=== PATIENT | female | born 1980 | race Caucasian/White ===

== ENCOUNTER 2023-08-27 08:01 | Outpatient (AMB) | payer OTHER, SELFPAY ==
--- NOTE | 2023-08-27 08:16 | A.OFFVIS_ITS ---
Intake Vital Signs 08/27/23 08:18 Height 5 ft 8 in BP 112/78 Blood Pressure Location Lt brachial Position Sitting Respiration 17 Pulse 74 Pulse Source Pulse Oximeter Pulse Oximetry (%) 97 Oxygen Delivery Method Room Air Intake Visit Reasons: E-TRAVEL SERVICE CONSULTANT: Memory Impairment/Lvm Intake Note: Pt presents to the office for new pt evaluation for memory impairment. Manager Sas Required: No Allergies Sulfa (Sulfonamide Antibiotics) Allergy (Mild, Verified 08/27/23 08:21) Hives Medication List - Last Reconciled 08/27/23 by Saranya Arnold MD amitriptyline 25 mg PO BEDTIME budesonide-formoterol 80-4.5 mcg/actuation (Symbicort) 1 inh inhalation BID bupropion HCl (Wellbutrin XL) 300 mg PO QAM metformin 500 mg PO DAILY omeprazole 20 mg PO DAILY HPI HPI Comments History of Present Illness Details 42y/o trans male comes for evaluation of memory issues. He started noticing short term memory issues since her 20s but has noticed worsening in the past 5 years. He has to use a materials planner and write down everything to remember. He forgot about his biopsy appointment, tattoo appointment, he frequently misreads a word or phrase and may not comprehend right. 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 He forgets names or courses, people. He was diagnosed with sleep apnea 1 year ago and has been using CPAP - followed up by [facility]. He has depression and anxiety. He used to see a psychiatrist. [facility] Medical History (Updated 08/27/23 @ 09:06 by Saranya Arnold MD) Other gender identity disorders Cognitive change Hiatal hernia GERD (gastroesophageal reflux disease) Asthma Vitamin D deficiency Binge eating disorder B12 deficiency Morbid obesity FH: cholecystectomy Surgical History H/O knee surgery Family History Father No problems noted. Household Members: Children Housing: Condominium Alcohol intake: current Patient Tobacco Use Status: Never used Tobacco Review of Systems Const Reports fatigue, Reports snoring and Reports weight gain Resp Reports snoring Neuro Reports memory loss Psych Reports depression and Reports memory loss Endo Reports fatigue Physical Exam Vital Signs: Last Vital Signs Pulse 74 08/27/23 08:18 Resp 17 08/27/23 08:18 BP 112/78 08/27/23 08:18 Pulse Ox 97 08/27/23 08:18 Oxygen Delivery Method Room Air 08/27/23 08:18 Const General: cooperative, comfortable and anxious Nutritional Appearance: obese Orientation/consciousness: patient oriented x3 Eyes Pupils: Equal, round and reactive pupils present Neuro General: patient oriented x3, tone normal, moves all extremities and no focal motor deficits Cranial nerves: Yes Facial sensation intact/muscles of mastication intact, Yes Equal, round and reactive pupils present, Yes Bilaterally intact EOM present, Yes Nystagmus not present, Yes Normal facial strength present, Yes Midline tongue present, Yes Symmetric palate elevation present and Yes Ability to bilaterally elevate shoulders present Cognition (Neuro): normal cognition Gait exam (Neuro): Normal gait present Motor exam (neuro): 5/5 motor strength present throughout Deep tendon reflexes (DTR's): Right triceps reflex intensity grade: 1+, Left triceps reflex intensity grade: 1+, Rt Biceps (C5, C6): 1+, Left biceps reflex intensity grade: 1+, Right brachioradialis reflex intensity grade: 1+, Left brachioradialis reflex intensity grade: 1+, Right patellar reflex intensity grade: 1+ and Left patellar reflex intensity grade: 1+ Coordination: [id number] test normal Psych Affect: Anxious affect present Orientation What is the (year) (season) (date) (day) (month)?: year, season, date, day and month Where are we (state) (county) (town or city) (hospital) (floor)?: state, county, town or city, hospital/clinic and floor Registration Name of 3 unrelated objects clearly and slowly, then ask patient to repeat all 3 of them. (1st repeat determines score. Make sure they can repeat all three): object 1, object 2 and object 3 Attention & Calculation (CHOOSE ONE) Spell WORLD backwards (DLROW): 5 letters Recall Ask patient to repeat the 3 items from question #3.: object 1, object 2 and object 3 Language Show patient a wristwatch & ask what it is. Repeat for pencil.: watch and pencil Ask the patient to repeat the phrase 'No ifs, ands, or buts' after you.: correct Ask the patient to 'take a piece of paper with their right hand' 'fold paper in half' 'place paper on floor': take paper in right hand, fold paper in half and place paper on floor Print the sentence 'CLOSE YOUR EYES' on a piece. If patient actually closes eyes then score.: followed written direction Give patient a blank piece of paper & ask to write a sentence. Score if it contains a noun & verb.: sentence contains subject and verb Ask patient to copy figure of intersecting pentagons exactly. Score if all 10 angles & 2 intersects are included.: all 10 angles present & 2 are intersected Score Score: 30 Assessment & Plan Assessment & Plan (1) Cognitive change: Comment: ? undiagnosed ADD, ? poorly controlled mood Code(s): R41.89 - Other symptoms and signs involving cognitive functions and awareness Plan I will evaluate him with MRI brain Refer him for cognitive therapy Neuropsyhc eval F/u with psychiatry Orders: Orders TSH reflex Free T4 Today R41.89 - Other symptoms and signs involving cognitive functions and awareness Erythrocyte Sedimentation Rate Today R41.89 - Other symptoms and signs involving cognitive functions and awareness Vitamin D 25-OH (D2 and D3) Today R41.89 - Other symptoms and signs involving cognitive functions and awareness Vitamin B12 and Folate Today R41.89 - Other symptoms and signs involving cognitive functions and awareness MR head/brain wo con Today R41.89 - Other symptoms and signs involving cognitive functions and awareness Referrals Speech and Hearing Referral R41.89 - Other symptoms and signs involving cognitive functions and awareness Neuropsychiatry Referral R41.89 - Other symptoms and signs involving cognitive functions and awareness Coding Level of Care Code New Pt Level 4 (83785) Diagnoses Cognitive change R41.89
[2023-08-27 08:18] VITALS: BP 112/78; PULSE 74; RESP 17; O2SAT 97
== END 2023-08-27 08:58 | disposition home or self-care (01) ==
PROVIDERS: PCP Nurse Practitioner Family; Visit Provider Psychiatry & Neurology Neurology
DX: R41.89 Other symptoms and signs involving cognitive functions and awareness (principal)
CPT/HCPCS: 99204

== ENCOUNTER → 2023-08-27 08:01 | Outpatient (BNVA) | payer OTHER, SELFPAY | PROVIDERS: PCP Nurse Practitioner Family; Visit Provider Psychiatry & Neurology Neurology ==

== ENCOUNTER 2023-10-21 07:32 | Outpatient (REF) | payer OTHER, SELFPAY | END 2023-10-21 07:33 | disposition home or self-care (01) | LOC: HO.MRI 07:32 | PROVIDERS: PCP Nurse Practitioner Family; Visit Provider Psychiatry & Neurology Neurology | DX: Z13.89 Encounter for screening for other disorder (principal) ==

== ENCOUNTER 2023-10-24 09:18 | Outpatient (RCR) | payer OTHER, SELFPAY ==
--- NOTE | 2023-11-28 12:57 | MHC.SP.ADU ---
Referring provider: Dr. Saranya Arnold Reason for Referral: Cognitive changes Type of Treatment: 77438 Evaluation Speech Sound Production WITH Language Date of Plan of Treatment: 10/24/23 Onset of Symptoms/Illness: 10/24/23 Date Treatment Started: 10/24/23 Medical Diagnosis: Other symptoms and signs involving cognitive functions and awareness (R41.89) Primary Speech Language Diagnosis: R41.841 Cognitive communication disorder Secondary Speech Language Diagnosis: History Pt is a 43 year-old self-identified male referred by his Neurologist with concern over changes to their memory. Per 08/27/23 Neuro note, 42y/o trans male comes for evaluation of memory issues. He started noticing short term memory issues since her 20s but has noticed worsening in the past 5 years. He has to use a meeting/event planner and write down everything to remember. He forgot about his biopsy appointment, tattoo appointment, he frequently misreads a word or phrase and may not comprehend right. 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 He has trouble retaining info. He frequently repeats often. He forgets names or courses, people. He was diagnosed with sleep apnea 1 year ago and has been using CPAP - [facility]. He has depression and anxiety. He used to see a psychiatrist. 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 Assistive Devices in use: Comment: Past Speech Language Therapy: None. Other Therapies Seen in Current Calendar Year: Unknown Other: Swallowing History: Dysphagia Specific: Within Functional Limits Comments: Pre-eval Risk for Aspiration: None Pre-evaluation Dietary Consistencies: Pre-eval Liquid Intake: Pre-eval Medication Intake: Reported Speech, Language, Cognition difficulties: Understanding Attention Reading Memory Cognition Problem Solving Comments: Quality of Life: Zaki completed the Multifactorial Memory Questionnaire. He rated his Satisfaction (T=37), Ability (T=43), and Strategy (T=42). His Scores fall into the borderline average to low average range. His Satisfaction score was the lowest, equivalent to the 10th percentile. Assessment Speech Production: Clinical Impression: Intact Observations: Testing not indicated. Informal Voice Assessment: Voice Loudness: Normal Voice Nasal Resonance: Normal Voice Oral Resonance: Voice Phonatory-based Quality: Normal Voice Pitch: Normal Voice Other Observations: Clinical Impression: Intact Clinicial Observations: Testing not indicated. Tests of Speech & Lang Adults: Clinical Impression: Intact Observations: Testing not indicated. Tests of Cognition: RBANS Clinical Impression: Impaired Observations: Zaki participated in the RBANS-Update, Form B, completing all items with good effort and motivation. Form A was not available on the day of testing. His scores are reported as follows: R-BANS Update I.) Immediate Memory Index: 129 Ia.) List Learning: -- Scaled Score: 15 Ib.) Story Memory: -- Scaled Score: 15 II.) Visuospatial/Constructional Index: 87 IIa.) Figure/Copy: -- Scaled Score: 2 IIb.) Line Orientation: -- Percentile Group: >75 III.) Language Index: 103 IIIa.) Picture Naming: -- Percentile Group: 51-75 IIIb.) Semantic Fluency: -- Scaled Score: 11 IV.) Attention Index: 132 [place].) Digit Span: -- Scaled Score: 16 IVb.) Coding: -- Scaled Score: 14 V.) Delayed Memory Index: 78 Va.) List Recall: -- Percentile Group: 17-25 Vb.) List Recognition: -- Percentile Group: 3-9 Vc.) Story Recall: -- Scaled Score: 8 Vd.) Figure Recall: -- Scaled Score: 6 Total Scale Score: 107 (%ile=68) Augmentative and Alternative Communication: Observations: Impressions and Recommendations Prognosis for Improvement: Good Recommendation for Speech Therapy: Further Testing Needed Discharged with Instructions for Home Use Time to Reassess: 12 months Recommended Referrals to be Discussed with Primary Care Provider: Neuropsychological Eval Patient Education: Completed: Yes Patient/Caregiver Education: Described Results of Evaluation Patient expressed understanding of evaluation Patient agrees with goals and treatment plan Pillowcase Cleaner Clinican/Clinical Fellow: No Supervisory Statement: N/A Speech Language Pathologist: Jame Easley M.A., CCC-ELECTRONIC GLUING MACHINE OPERATOR
--- NOTE | 2023-11-28 13:00 | MHC.SP.ADU ---
Referring provider: Dr. Saranya Arnold Reason for Referral: Cognitive changes Type of Treatment: 52329 Evaluation Speech Sound Production WITH Language Date of Plan of Treatment: 10/24/23 Onset of Symptoms/Illness: 10/24/23 Date Treatment Started: 10/24/23 Medical Diagnosis: Other symptoms and signs involving cognitive functions and awareness (R41.89) Primary Speech Language Diagnosis: R41.841 Cognitive communication disorder History Pt is a 43 year-old self-identified male referred by his Neurologist with concern over changes to their memory. Per 08/27/23 Neuro note, 42y/o trans male comes for evaluation of memory issues. He started noticing short term memory issues since her 20s but has noticed worsening in the past 5 years. He has to use a sales planner and write down everything to remember. He forgot about his biopsy appointment, tattoo appointment, he frequently misreads a word or phrase and may not comprehend right. 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 He has trouble retaining info. He frequently repeats often. He forgets names or courses, people. He was diagnosed with sleep apnea 1 year ago and has been using CPAP - [facility]. He has depression and anxiety. He used to see a psychiatrist. 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 Past Speech Language Therapy: None. Other Therapies Seen in Current Calendar Year: Unknown Swallowing History: Dysphagia Specific: Within Functional Limits Comments: Pre-eval Risk for Aspiration: None Pre-evaluation Dietary Consistencies: Pre-eval Liquid Intake: Pre-eval Medication Intake: Reported Speech, Language, Cognition difficulties: Understanding Attention Reading Memory Cognition Problem Solving Quality of Life: Zaki completed the Multifactorial Memory Questionnaire. He rated his Satisfaction (T=37), Ability (T=43), and Strategy (T=42). His Scores fall into the borderline average to low average range. His Satisfaction score was the lowest, equivalent to the 10th percentile. Patient Stated Goal of Speech-Language Therapy: Assessment Speech Production: Clinical Impression: Intact Observations: Testing not indicated. Informal Voice Assessment: Clinical Impression: Intact Clinicial Observations: Testing not indicated. Tests of Speech & Lang Adults: Clinical Impression: Intact Observations: Testing not indicated. Tests of Cognition: RBANS Clinical Impression: Impaired Observations: Zaki participated in the RBANS-Update, Form B, completing all items with good effort and motivation. Form A was not available on the day of testing. His scores are reported as follows: R-BANS Update I.) Immediate Memory Index: 129 Ia.) List Learning: -- Scaled Score: 15 Ib.) Story Memory: -- Scaled Score: 15 II.) Visuospatial/Constructional Index: 87 IIa.) Figure/Copy: -- Scaled Score: 2 IIb.) Line Orientation: -- Percentile Group: >75 III.) Language Index: 103 IIIa.) Picture Naming: -- Percentile Group: 51-75 IIIb.) Semantic Fluency: -- Scaled Score: 11 IV.) Attention Index: 132 [place].) Digit Span: -- Scaled Score: 16 IVb.) Coding: -- Scaled Score: 14 V.) Delayed Memory Index: 78 Va.) List Recall: -- Percentile Group: 17-25 Vb.) List Recognition: -- Percentile Group: 3-9 Vc.) Story Recall: -- Scaled Score: 8 Vd.) Figure Recall: -- Scaled Score: 6 Total Scale Score: 107 (%ile=68) Augmentative and Alternative Communication: Observations: Impressions and Recommendations SUMMARY: Zaki demonstrated and overall scaled score which is in the average range (YO=123). He demonstrated superior performance on subtests assessing immediate memory and attention. His Visuospatial Construction score (SS=87) was lowered heavily by a low score on the Figure Copy subtest. Most of his points were lost due to imprecise, hasty drawing. There is a significant gap between his Immediate Memory scores and his Delayed Memory (SS=78). According to the RBANS manual only 0.4% of the entire sample had a difference of >40 points between these domains. He demonstrated low List Recall and List Recognition scores signifying that he is having difficulty with initial encoding of information, both verbal and visual. This is a complex array of findings and a full neuropsych evaluation is recommended to better assess the potential causes of his performance. 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 He is using an array of memory strategies already including making lists, using a calendar and his phone. He is seeing a counsellor to work on his socioemotional needs. He is not deemed a suitable candidate for Cognitive Communication Therapy as he already has many supports in place. Based on today's finding the source of his memory issues appear to be neurophysiological and not behavioral in nature. Prognosis for Improvement: Conditional Recommendation for Speech Therapy: Further Testing Needed Discharged with Instructions for Home Use Time to Reassess: 12 months Recommended Referrals to be Discussed with Primary Care Provider: Neuropsychological Eval Patient Education: Completed: Yes Patient/Caregiver Education: Described Results of Evaluation Patient expressed understanding of evaluation Patient agrees with goals and treatment plan Comments/Barriers to Learning: Senior Network Engineer Clinican/Clinical Fellow: No Supervisory Statement: N/A Speech Language Pathologist: Jame Easley M.A., CCC-AIRCRAFT AVIONICS TECHNICIAN
== END 2023-11-28 14:59 | disposition home or self-care (01) ==
LOC: HO.SH 09:18
PROVIDERS: Visit Provider Psychiatry & Neurology Neurology
DX: R41.89 Other symptoms and signs involving cognitive functions and awareness (principal)
CPT/HCPCS: 92523

== ENCOUNTER 2024-03-02 09:25 | Outpatient (AMB) | payer OTHER, SELFPAY ==
--- NOTE | 2024-03-02 09:27 | A.OFFVIS_ITS ---
Vital Signs 03/02/24 09:28 Height 5 ft 8 in BP 126/80 Blood Pressure Location Rt brachial Position Sitting Respiration 17 Pulse 80 Pulse Source Pulse Oximeter Pulse Oximetry (%) 99 Oxygen Delivery Method Room Air Intake Visit Reasons: 6 mo f/u Memory Impairment - Confirmed Intake Note: Pt presents for a 6 month follow up memory changes. Petroleum Products District Supervisor Required: No Allergies Sulfa (Sulfonamide Antibiotics) Allergy (Mild, Verified 03/02/24 09:27) Hives HPI Comments Details: 43y/o trans male comes for follow up of memory issues. MRI brain was normal . He has speech and cognitive evaluation - complex findings with big difference in his immediate memory and delayed memory , low list recall suggesting difficulty with encoding info. He started noticing short term memory issues since her 20s but has noticed worsening in the past 5 years. He has to use a certified financial planner and write down everything to remember. He forgot about his biopsy appointment, tattoo appointment, he frequently misreads a word or phrase and may not comprehend right. 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 He forgets names or courses, people. He was diagnosed with sleep apnea 1 year ago and has been using CPAP - followed up by [facility]. He has depression and anxiety. He used to see a psychiatrist. [facility] Medical History Other gender identity disorders Cognitive change Hiatal hernia GERD (gastroesophageal reflux disease) Asthma Vitamin D deficiency Binge eating disorder B12 deficiency Morbid obesity FH: cholecystectomy Surgical History H/O mastectomy H/O knee surgery Family History Father No problems noted. Social History Household Members: Children Housing: Condominium Alcohol intake: current Comment: seldom Patient Tobacco Use Status: Never used Tobacco Physical Exam Vital Signs: Last Vital Signs Pulse 80 03/02/24 09:28 Resp 17 03/02/24 09:28 BP 126/80 03/02/24 09:28 Pulse Ox 99 03/02/24 09:28 Oxygen Delivery Method Room Air 03/02/24 09:28 Const General: cooperative, comfortable and anxious Nutritional Appearance: obese Orientation/consciousness: patient oriented x3 Eyes Pupils: Equal, round and reactive pupils present Neuro General: patient oriented x3, tone normal, moves all extremities and no focal motor deficits Cranial nerves: Yes Facial sensation intact/muscles of mastication intact, Yes Equal, round and reactive pupils present, Yes Bilaterally intact EOM present, Yes Nystagmus not present, Yes Normal facial strength present, Yes Midline tongue present, Yes Symmetric palate elevation present and Yes Ability to bilaterally elevate shoulders present Cognition (Neuro): normal cognition Gait exam (Neuro): Normal gait present Motor exam (neuro): 5/5 motor strength present throughout Deep tendon reflexes (DTR's): Right triceps reflex intensity grade: 1+, Left triceps reflex intensity grade: 1+, Rt Biceps (C5, C6): 1+, Left biceps reflex intensity grade: 1+, Right brachioradialis reflex intensity grade: 1+, Left brachioradialis reflex intensity grade: 1+, Right patellar reflex intensity grade: 1+ and Left patellar reflex intensity grade: 1+ Coordination: [id number] test normal Psych Affect: Anxious affect present Assessment & Plan Assessment & Plan (1) Cognitive change: Comment: ? undiagnosed ADD, ? poorly controlled mood Code(s): R41.89 - Other symptoms and signs involving cognitive functions and awareness Category: Medical Plan Neuropsych evaluation for further assessment Reviewed MRI results F/u 6 mths Orders: Referrals Neuropsychiatry Referral R41.89 - Other symptoms and signs involving cognitive functions and awareness Coding Level of Care Code Est Pt Level 4 (26219) Diagnoses Cognitive change R41.89
[2024-03-02 09:28] VITALS: BP 126/80; PULSE 80; RESP 17; O2SAT 99
== END 2024-03-02 09:49 | disposition home or self-care (01) ==
PROVIDERS: PCP Nurse Practitioner Family; Visit Provider Psychiatry & Neurology Neurology
DX: R41.89 Other symptoms and signs involving cognitive functions and awareness (principal)
CPT/HCPCS: 99214

== ENCOUNTER → 2024-03-02 09:25 | Outpatient (BNVA) | payer OTHER, SELFPAY | PROVIDERS: PCP Nurse Practitioner Family; Visit Provider Psychiatry & Neurology Neurology ==

== ENCOUNTER 2024-09-14 09:56 | Outpatient (AMB) | payer OTHER, SELFPAY ==
[2024-09-14 09:58] VITALS: BP 126/86; PULSE 86; O2SAT 98
--- NOTE | 2024-09-14 09:58 | A.OFFVIS_ITS ---
Vital Signs 09/14/24 09:58 Height 5 ft 8 in BP 126/86 Blood Pressure Location Rt brachial Position Sitting Pulse 86 Pulse Source Pulse Oximeter Pulse Oximetry (%) 98 Oxygen Delivery Method Room Air Intake Visit Reasons: 6 mo f/u Memory Impairment Accompanied by: Self / Same As Patient Allergies Sulfa (Sulfonamide Antibiotics) Allergy (Mild, Verified 09/14/24 10:01) Hives Do you need a note to return to daycare/school/sports/work: No HPI Comments Details: 43y/o trans male comes for follow up of memory issues. MRI brain was normal. He has speech and cognitive evaluation - complex findings with big difference in his immediate memory and delayed memory , low list recall suggesting difficulty with encoding info. He started noticing short term memory issues since her 20s but has noticed worsening in the past 5 years. He has to use a town planner and write down everything to remember. He has trouble with misspelling words.He has trouble recalling significant events in his life. 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 He forgets names or courses, people. He forgets conversations with partner and not remember them 3 weeks later. Awaiting neurocognitive testing for ADHD evaluation. He was diagnosed with sleep apnea 1 year ago and has been using CPAP - followed up by [facility]. Sleeps better with CPAP, 6-7 hours / per night with one bathroom break. >4hours total is 5 hours and 27 min /night, and AHI 0.37. He has depression and anxiety, manages well on Wellbutrin. He used to see a therapist, once a month as needed. 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 Acid reflux managed on Famotidine and tapering off of Omeprazole. A1c is well managed on Metformin. [facility] Medical History Other gender identity disorders Cognitive change Hiatal hernia GERD (gastroesophageal reflux disease) Asthma Vitamin D deficiency Binge eating disorder B12 deficiency Morbid obesity FH: cholecystectomy Surgical History H/O mastectomy H/O knee surgery Family History Father No problems noted. Social History Household Members: Children [facility] Alcohol intake: current Comment: seldom Patient Tobacco Use Status: Never used Tobacco Review of Systems Const All systems reviewed & are unremarkable except as noted in HPI and below Physical Exam Vital Signs: Last Vital Signs Pulse 86 09/14/24 09:58 BP 126/86 09/14/24 09:58 Pulse Ox 98 09/14/24 09:58 Oxygen Delivery Method Room Air 09/14/24 09:58 Const General: cooperative, comfortable and anxious Nutritional Appearance: obese Orientation/consciousness: patient oriented x3 Eyes Pupils: Equal, round and reactive pupils present Neuro General: patient oriented x3, tone normal, moves all extremities and no focal motor deficits Cranial nerves: Yes Facial sensation intact/muscles of mastication intact, Yes Equal, round and reactive pupils present, Yes Bilaterally intact EOM present, Yes Nystagmus not present, Yes Normal facial strength present, Yes Midline tongue present, Yes Symmetric palate elevation present and Yes Ability to bilaterally elevate shoulders present Cognition (Neuro): normal cognition Gait exam (Neuro): Normal gait present Motor exam (neuro): 5/5 motor strength present throughout Deep tendon reflexes (DTR's): Right triceps reflex intensity grade: 1+, Left triceps reflex intensity grade: 1+, Rt Biceps (C5, C6): 1+, Left biceps reflex intensity grade: 1+, Right brachioradialis reflex intensity grade: 1+, Left brachioradialis reflex intensity grade: 1+, Right patellar reflex intensity grade: 1+ and Left patellar reflex intensity grade: 1+ Coordination: [id number] test normal Psych Affect: Anxious affect present Results Reviewed Results Reviewed: CPAP use on Phil Total Average use >4 hours is 79.9% Average per night is 5hours and 37 min. AHI is 0.37 Assessment & Plan Assessment & Plan (1) Cognitive change: Comment: ? undiagnosed ADD, ? poorly controlled mood Code(s): R41.89 - Other symptoms and signs involving cognitive functions and awareness Category: Medical (2) GERD (gastroesophageal reflux disease): Code(s): K21.9 - Gastro-esophageal reflux disease without esophagitis Category: Medical Qualifiers: Esophagitis presence: with esophagitis Esophagitis bleeding: without hemorrhage Qualified Code(s): K21.00 - Gastro-esophageal reflux disease with esophagitis, without bleeding (3) Vitamin D deficiency: Code(s): E55.9 - Vitamin D deficiency, unspecified Category: Medical (4) B12 deficiency: Code(s): E53.8 - Deficiency of other specified B group vitamins Category: Medical (5) Morbid obesity: Code(s): E66.01 - Morbid (severe) obesity due to excess calories Category: Medical Plan Cognitive Memory Disorder : Awaiting Neuropsychiatry Evaluation, 11/28/2023. Patient Education: Lifestyle changes like diet and exercise along with good sleep 7-8 hours is important in healthy brain function. Sleep Apnea: CPAP use daily, try to increase use to 6 or more hours per night as tolerated. ENT Evaluation for [facility] Therapy: Mallampti Score of 4, BMI is elevated, will be a good candidate, as he continues to have difficulty with the mask. Will f/u in 6 months for sleep apnea and post neuropscyh evaltion for ADHD evaluation for Cognitive decline. Call clinic if you have any questions or concerns. Orders: Referrals Ear/Nose/Throat Referral G47.30 - Sleep apnea, unspecified, R41.89 - Other symptoms and signs involving cognitive functions and awareness Coding Level of Care Code Est Pt Level 4 (31534) Diagnoses Cognitive change R41.89 Gastroesophageal reflux disease with esophagitis without hemorrhage K21.00 Esophagitis presence: with esophagitis Esophagitis bleeding: without hemorrhage Vitamin D deficiency E55.9 B12 deficiency E53.8 Morbid obesity E66.01 Time Spent (min) 30 Comment At baseline
== END 2024-09-14 10:48 | disposition home or self-care (01) ==
PROVIDERS: PCP Nurse Practitioner Family; Visit Provider Physician Assistant Medical
DX: R41.89 Other symptoms and signs involving cognitive functions and awareness (principal); K21.00 Gastro-esophageal reflux disease with esophagitis, without bleeding; E55.9 Vitamin D deficiency, unspecified; E53.8 Deficiency of other specified B group vitamins; E66.01 Morbid (severe) obesity due to excess calories
CPT/HCPCS: 99214

== ENCOUNTER 2025-03-16 09:50 | Outpatient (AMB) | payer OTHER, SELFPAY ==
--- NOTE | 2025-03-16 10:09 | A.OFFVIS_ITS ---
Vital Signs 03/16/25 10:13 Height 5 ft 8 in BMI Reason not done Patient refused/unable BP 122/84 Blood Pressure Location Lt brachial Position Sitting Pulse 86 Pulse Source Pulse Oximeter Pulse Oximetry (%) 98 Oxygen Delivery Method Room Air Intake Visit Reasons: Follow Up Intake Note: Patient presents follow up Cognitive. ENT booked 05/18. Patient questions age related memory( short term memory issues. Stated had work up while ago but never followed. Allergies Sulfa (Sulfonamide Antibiotics) Allergy (Mild, Verified 03/16/25 10:11) Hives HPI Comments Details: 44y/o trans male comes for follow up of memory issues. DILCIA Compliance report on [employer] [facility]: 11/2024- 02/2025 total use is 326/378 days and >4 hours Avg use 5 hours and 49min Leaks median Pressures [id number] AHI is 0.37 He sleeps much better with cpap use about 6-7 hours a night with one bathroom break. Speech and hearing evaluation 80 point drop between immediate memory and working memory. Pending Neuro-cognitive testing [facility]. 10/2023 MRI brain was normal. 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 He recently completed the online language literacy intensive 50 hour course and feels he did not do well. He had a speech and cognitive evaluation with complex findings with differences in his immediate memory and delayed memory, aphasia , word finding difficulties, cookie cutter, or ornament , and couch or bed word switching. He started noticing short term memory issues since the age of 21 but notices decline in the past 5 years. He has to use a cyber policy and strategy planner and write down everything to stay on task and timelines. He also has trouble with misspelling words and recalling significant events in his life. He started to notice he forgets names, courses, people, conversations and repeats frequently. He also has a h/o ocd, behaviour with purging and over eating. He is awaiting neuro-cognitive testing for ADHD evaluation. He has continues to have ongoing depression with anxiety, and manages symptoms on Wellbutrin, 150mg daily. He is seeing a therapist once a month. 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 Acid reflux managed on Famotidine and tapering off of Omeprazole. A1c is well managed on Metformin. [facility] Medical History Other gender identity disorders Cognitive change Hiatal hernia GERD (gastroesophageal reflux disease) Asthma Vitamin D deficiency Binge eating disorder B12 deficiency Morbid obesity FH: cholecystectomy Surgical History H/O mastectomy H/O knee surgery Family History Father No problems noted. Social History Household Members: Children [facility]: [facility] Alcohol intake: current Comment: seldom Patient Tobacco Use Status: Never used Tobacco Physical Exam Vital Signs: Last Vital Signs Pulse 86 03/16/25 10:13 BP 122/84 03/16/25 10:13 Pulse Ox 98 03/16/25 10:13 Oxygen Delivery Method Room Air 03/16/25 10:13 Const Orientation/consciousness: patient oriented x3 Eyes Pupils: Equal, round and reactive pupils present Neck Neck: Yes full ROM Resp Effort & Inspection: normal respiratory effort and able to speak in complete sentences Neuro General: patient oriented x3 and moves all extremities Cranial nerves: Yes Facial sensation intact/muscles of mastication intact, Yes Equal, round and reactive pupils present, Yes Normal accommodation reflex present, Yes Normal facial strength present, Yes Midline tongue present, Yes Ability to bilaterally rotate head present and Yes Ability to bilaterally elevate shoulders present Gait exam (Neuro): Normal gait present Motor exam (neuro): 5/5 motor strength present throughout and Normal motor muscle tone present throughout Psych Appearance: grossly normal Affect: Anxious affect present Attitude: cooperative Results Reviewed Results Reviewed: DILCIA Compliant Report 11/2024- 02/2025 Assessment & Plan Assessment & Plan (1) Cognitive change: Comment: ? undiagnosed ADD, ADHD ? poorly controlled mood/ depression/ anxiety++ Code(s): R41.89 - Other symptoms and signs involving cognitive functions and awareness Category: Medical (2) Vitamin D deficiency: Code(s): E55.9 - Vitamin D deficiency, unspecified Category: Medical (3) B12 deficiency: Code(s): E53.8 - Deficiency of other specified B group vitamins Category: Medical (4) Morbid obesity: Comment: Weight Managment referral declined today. Code(s): E66.01 - Morbid (severe) obesity due to excess calories Category: Medical (5) Binge eating disorder: Code(s): F50.81 - Binge eating disorder Category: Medical Qualifiers: Eating disorder severity or remission status: unspecified severity Qualified Code(s): F50.819 - Binge eating disorder, unspecified (6) Fatigue: Code(s): R53.83 - Other fatigue Category: Medical Qualifiers: Fatigue type: chronic, unspecified Qualified Code(s): R53.82 - Chronic fatigue, unspecified Plan DILCIA compliance report reviewed with patient. Cognitive Memory Disorder Awaiting Neuropsychiatry Evaluation / ADHD/ h/o ocd/ purging behavior. Speech and Hearing note 10/2023 reviewed with patient today MRI 10/2023 Reviewed with patient normal study. Continue taking b12 otc and vit d otc. Patient Education: Lifestyle changes like diet and exercise along with good sleep 7-8 hours is important to healthy brain function. Future considerations if not tolerated cpap therapy: Weight management if patient is amenable ENT Evaluation for [facility] Therapy: Mallampti Score of 4, BMI is elevated, will be a good candidate, as he continues to have difficulty with the mask. Labs and records requested from [facility] Orders: Orders IRON PROFILE Today F50.81 - Binge eating disorder, G47.9 - Sleep disorder, unspecified, R53.83 - Other fatigue Homocysteine Today F50.81 - Binge eating disorder, G47.9 - Sleep disorder, unspecified, R53.83 - Other fatigue Methylmalonic Acid Today F50.81 - Binge eating disorder, G47.9 - Sleep disorder, unspecified, R53.83 - Other fatigue Vitamin D 25-OH Total Today F50.81 - Binge eating disorder, R53.83 - Other fatigue Ferritin Today F50.81 - Binge eating disorder, R53.83 - Other fatigue Hemoglobin A1c Today F50.81 - Binge eating disorder, R53.83 - Other fatigue TSH reflex Free T4 Today F50.81 - Binge eating disorder, R53.83 - Other fatigue Vitamin B12 and Folate Today F50.81 - Binge eating disorder, R53.83 - Other fatigue Complete Blood Count no Diff Today F50.81 - Binge eating disorder, R53.83 - Other fatigue Comprehensive Met. Panel Today F50.81 - Binge eating disorder, R53.83 - Other fatigue Patient Instructions: Sleep Hygiene provided: set a scheduled bedtime and wake time to help regulate the circadian rhythm and balance the release of pituitary hormones. Sleep in a dark room, temperatures below 68 degrees, and no devices n bed. Limit caffeinated products 6 hours prior to bed, and limit fluids 2-4 hours prior to bed. Gentle night yoga, diffusing essential oils, and playing soft music can be relaxing. Coding Level of Care Code Est Pt Level 4 (86048) Diagnoses Cognitive change R41.89 Vitamin D deficiency E55.9 B12 deficiency E53.8 Morbid obesity E66.01 Binge eating disorder, unspecified severity F50.819 Eating disorder severity or remission status: unspecified severity Chronic fatigue R53.82 Fatigue type: chronic, unspecified Time Spent (min) 30
[2025-03-16 10:13] VITALS: BP 122/84; PULSE 86; O2SAT 98
== END 2025-03-16 11:03 | disposition home or self-care (01) ==
LOC: HO.HSMS 09:51
PROVIDERS: PCP Nurse Practitioner Family; Visit Provider Physician Assistant Medical
DX: R41.89 Other symptoms and signs involving cognitive functions and awareness (principal); E55.9 Vitamin D deficiency, unspecified; E53.8 Deficiency of other specified B group vitamins; E66.01 Morbid (severe) obesity due to excess calories; F50.819 Binge eating disorder, unspecified; R53.82 Chronic fatigue, unspecified
CPT/HCPCS: 99214

== ENCOUNTER → 2025-03-16 09:50 | Outpatient (BNVA) | payer OTHER, SELFPAY | PROVIDERS: PCP Nurse Practitioner Family; Visit Provider Physician Assistant Medical ==

== ENCOUNTER 2025-06-22 07:51 | Outpatient (AMB) | payer OTHER, SELFPAY ==
--- OUTSIDE RECORDS SUMMARY | 2025-06-22 07:53 | XMS_ITS | Encounter Summary ---
Author Organization [facility] Address [address] [place] [phone] Phone Care Team Providers Care Heavy Equipment Rental Manager Name Role Phone Eliana Ramos NP Unavailable [phone] Rob Barnett MD Unavailable [phone] Karolina Engle MD Unavailable [phone] Aroldo Langley INSPECTOR MISSILE Unavailable [phone] Escobar Toro IMAGING ACCOUNT MANAGER Unavailable [phone] Nallely Rasheed MD Unavailable [phone] Neftaly Zhou MD Unavailable Eliana Ramos INSPECTOR MISSILE Primary Care Provider Marybeth Ovalle NP Primary Care Provid er Reason for Referral * Physical Therapy (Routine) - Closed Specialty Diagnoses / Procedures Referred By Jennifer mejia Referred To Contact Physical Therapy Diagnoses Encounter for rehabilitation Chapis Hernandez NP Phone: tel: [email or web address] [address] [place] [address] Phone: tel: Referral ID Status Reason Start Date Expiration Date Visits Re quested Visits Authorized [id number] Closed 05/14/2018 10/20/2018 40 40 Encounter Details Date Type Department Care Team (Latest Contact Info) Description 05/14/2018 Transcribe Orders [facility] [address] [place] [address] Chapis Hernandez NP [address] [place] [address] [email or web address] Encounter for rehabilitation (Primary Dx) Social History Tobacco Use Types Packs/Day Years Used Date Smoking Tobacco: Never Smokeless Tobacco: Never Alcohol Use Standard Drinks/Week Comments Yes 0 (1 standard drink = 0.6 oz pur e alcohol) 1x month Comments Unknown Sex and Gender Information Value Date Recorded Sex Assigned at Female 10/07/2017 9:38 AM EST Legal Sex Female 9:20 PM EDT Gender Identity Non-binary 10/11/2024 9:51 PM EST Sexual Orientation Queer 10/07/2017 9: 38 AM EST documented as of this encounter Plan of Treatment Scheduled Referrals Name Type Priority Associated Diagnoses Orde r Schedule Ambulatory referral to [facility] Physical Therapy Outpatient Referral Routine Encounter for rehabilitation Ordered: 05/14/2018 documented as of this encounter Visit Diagnoses Diagnosis Encounter for rehabilitation- Primary documented in this encounter Care Teams Heavy Equipment Rental Manager Relationship Specialty Start Date End Date Eliana Ramos NP [address] [place] [address] [email or web address] PCP - General 10/03/17 09/07/20 Marybeth Ovalle NP [address] [place] [address] [email or web address] PCP - General Family Medicine 09/08/20 Eliana Ramos NP [address] [place] [address] [email or web address] Historical LMR Provider 07/17/1710/07 Rob Barnett MD [address] [place] [address] [email or web address] Historical LMR Provider 07/17/17 10/07/21 Karolina Engle MD [address] [address] [email or web address] Historical LMR Provider 07/17/17 Aroldo Langley, SKY [address] [place], [place] [address]A [facility] [address] [place] [address] Historical LMR Provider 07/17/17 2 Escobar Toro CNP [address] [place] [address] Historical LMR Provider 07/17/17 Nallely Rasheed MD [address] [place] [address] [facility], [place] [address] Historical LMR Provider 07/17/17 Neftaly Zhou MD [address] [place] [address] Historical LMR Provider 07/17/17 documented as of this encounter Additional Source Comments The information contained in this document represents components of the legal health record. It is not the complete legal health record.[facility]
--- OUTSIDE RECORDS SUMMARY | 2025-06-22 07:53 | XMS_ITS | Encounter Summary ---
Author Organization [facility] Address [address] [place] [address] [place] [address] Phone Care Team Providers Care Picking Supervisor Name Role Phone Karolina Engle MD Unavailable [phone] Escobar Toro CNP Unavailable Marybeth Ovalle NP Primary Care Provid er Encounter Details Date Type Department Care Team (Latest Contact Info) Description 10/19/2024 Transcribe Orders [facility] [address] [address] Rachel York PA [address] [place] [address] Gastroesophageal reflux disease, unspecified whether esophagitis present (Primary Dx) Social History Tobacco Use Types Packs/Day Years Used Date Smoking Tobacco: Never Smokeless Tobacco: Never Alcohol Use Standard Drinks/Week Comments Yes 0 (1 standard drink = 0.6 oz pur e alcohol) 1x month Education Answer Date Recorded Are you interested in more education? Not on luisito e 01/25/2023 Are you concerned about learning? Not on file 01/25/2023 No 01/25/2023 No 01/25/2023 Digital Access Answer Date Recorded No 02/22/2023 No 02/22/2023 Reliable internet access at home? Not on file 02/22/2023 Device with a working camera? Not on file Intimate Partner Violence Answer Date R ecorded Are you denied basic needs s uch as food, clothing, or medical care? No 06/01/2024 In the past 12 months have y ou been in a relationship with a person who hurts, threatens, or tries to control you? No 06/01/2024 Are you denied basic needs s uch as food, clothing, or medical care? No 06/01/2024 In the past 12 months have y ou been in a relationship with a person who hurts, threatens, or tries to control you? No 06/01/2024 Comments No Sex and Gender Information Value Date Recorded Sex Assigned at Female 10/07/2017 9:38 AM EST Legal Sex Female 9:20 PM EDT Gender Identity Non-binary 10/11/2024 9:51 PM EST Sexual Orientation Queer 10/07/2017 9: 38 AM EST documented as of this encounter Plan of Treatment Not on file documented as of this encounter Results * Ova and parasites, stool (10/21/2024 8:30 AM EST) Parasitic exam FINAL 5 1416 [facility] DPT OF LAB MED AND PAT+ Comment: (NOTE) SOURCE: STOOL, STLP OVA AND PARASITE, MICROSCOPY, F FINAL No parasites seen. Cryptosporidium, Cyclospora, and microsporidia are not readily detected by this method. Single negative specimen does not rule out parasitic infection. Stool (Stool) 10/21/2024 8:3 0 AM EST 10/21/2024 9:36 AM EST us Rachel MCDONNELL MICROBIOLOGY - GENERAL REDDY FLOWERS Final Result [facility] DPT OF LAB MED AND PAT+ [address] [place] [address] * H. pylori stool PCR with resistance prediction (10/21/2024 8:30 AM EST) Specimen Source STOOL [facility] DPT OF LAB MED AND PAT+ Helicobacter pylori Result Not Detected Not Detected [facility] DPT OF LAB MED AND PAT+ Comment: (NOTE) ADDITIONAL INFORMATION This test was developed and its performance characteristics determined by [facility] in a manner consistent with CLIA requirements. This test has not been cleared or approved by the U.S. Food and Drug Administration. Clarithromycin Resistance Result Test component not applicable or not reported. [facility] DPT OF LAB MED AND PAT+ Stool (Stool) 10/21/2024 8:3 0 AM EST 10/21/2024 9:36 AM EST us Rachel MCDONNELL BODY FLUIDS AND STOOLS ORDE RABMERARY Final Result [facility] DPT OF LAB MED AND PAT+ [address] [place] [address] * Giardia and cryptosporidium screen (10/21/2024 8:30 AM EST) GIARDIA AG Negative Negative [facility] Cryptosporidiu m, stool Negative Negative [facility] Stool (Stool) 10/21/2024 8:3 0 AM EST 10/21/2024 9:36 AM EST us Rachel MCDONNELL NON CULTURE MICROBIOLOGY Fi nal Result Performing Organization Address City/[facility]/ZIP Co de Phone Number [facility] [address] [place] [address] * (ABNORMAL) Calprotectin, stool (10/21/2024 8:30 AM EST) STOOL CALPROTECTIN 213(H) mcg/g [facility]/Jadon [facility] Comment: (NOTE) Reference Range: <50 Normal 50-120 Borderline >120 Elevated Calprotectin in Crohn's disease and ulcerative colitis can be five to several thousand times above the reference population (50 mcg/g or less). Levels are usually 50 mcg/g or less in healthy patients and with irritable bowel syndrome. Repeat testing in 4-6 weeks is suggested for borderline values. Stool (Stool) 10/21/2024 8:3 0 AM EST 10/21/2024 9:36 AM EST us Rachel MCDONNELL BODY FLUIDS AND STOOLS ELIAZARE LIONEL Final Result [facility] [address] [place] [address], [facility] [phone] * Ova and parasites, stool (10/20/2024 9:30 AM EST) Parasitic exam FINAL 5 1411 [facility] DPT OF LAB MED AND PAT+ Comment: (NOTE) SOURCE: STOOL, STLP OVA AND PARASITE, MICROSCOPY, F FINAL No parasites seen. Cryptosporidium, Cyclospora, and microsporidia are not readily detected by this method. Single negative specimen does not rule out parasitic infection. Stool (Stool) 10/20/2024 9:3 0 AM EST 10/21/2024 9:38 AM EST us Rachel MCDONNELL MICROBIOLOGY - GENERAL ORDE RABLES Final Result Performing Organization Address City/[facility]/ZIP Co de Phone Number [facility] DPT OF LAB MED AND PAT+ [address] [place] [address] * Ova and parasites, stool (10/19/2024 9:00 AM EST) Parasitic exam FINAL 5 1350 [facility] DPT OF LAB MED AND PAT+ Comment: (NOTE) SOURCE: STOOL, STLP OVA AND PARASITE, MICROSCOPY, F FINAL No parasites seen. Cryptosporidium, Cyclospora, and microsporidia are not readily detected by this method. Single negative specimen does not rule out parasitic infection. Stool (Stool) 10/19/2024 9:0 0 AM EST 10/21/2024 9:45 AM EST Rachel MCDONNELL MICROBIOLOGY - GENERAL ORDE RABLES Final Result [facility] DPT OF LAB MED AND PAT+ [address] [place] [address] documented in this encounter Visit Diagnoses Diagnosis Gastroesophageal reflux disease, unspecified whether esophagitis present- Primary documented in this encounter Care Teams Picking Supervisor Relationship Specialty Start Date End Date Marybeth Ovalle NP [address] [place] [phone] [email or web address] PCP - General Family Medicine 09/08/20 Karolina Engle MD [address] [place] [address] Historical LMR Provider 07/17/17 Escobar Toro CNP [address] [place] [address] Historical LMR Provider 07/17/17 documented as of this encounter Additional Source Comments The information contained in this document represents components of the legal health record. It is not the complete legal health record.[facility]
--- OUTSIDE RECORDS SUMMARY | 2025-06-22 07:53 | XMS_ITS | Encounter Summary ---
Author Organization [facility] Address [address] [place] [address] Phone Care Team Providers Care Asset Protection Specialist Name Role Phone Eliana Ramos NP Unavailable Rob Barnett MD Unavailable Karolina Engle MD Unavailable Aroldo Langley VICE PRESIDENT OF CONSULTING SERVICES Unavailable [phone] Escobar Toro SWITCHBOARD OPERATOR Unavailable Nallely Rasheed MD Unavailable Neftaly Zhou MD Unavailable Eliana Ramos VICE PRESIDENT OF CONSULTING SERVICES Primary Care Provider Marybeth Ovalle VICE PRESIDENT OF CONSULTING SERVICES Primary Care Provid er Reason for Referral * MRI/CAT Scan - Closed Specialty Diagnoses / Procedures Referred By Jennifer mejia Referred To Contact Radiology Diagnoses Right knee pain, unspecified chronicity Procedures MRI Knee (Right) Rudy Thornton DO Phone: tel: fax: [email or web address] Referral ID Status Reason Start Date Expiration Date Visits Re quested Visits Authorized [id number] Closed 04/14/2019 04/13/2020 1 1 Encounter Details Date Type Department Care Team (Late st Contact Info) Description 04/14/2019 Transcribe Orders Virtual Department [address] [place] [address] Rudy Thornton, DO [address] [place] [id number] [email or web address] Right knee pain, unspecified chronicity (Primary Dx) Social History Tobacco Use Types [...] documented as of this encounter Results * MRI KNEE WITHOUT CONTRAST (RIGHT) (04/21/2019 10:24 PM EDT) Anatomical Region Laterality Modality Knee Right Magnetic Resonan ce 04/22/2019 11:0 7 AM EDT Impressions 04/22/2019 12:07 PM EDT 1. Complex tear of the anterior horn and body of the medial meniscus, which extends to the inferior articular surface. A few small parameniscal cysts. 2. Intact ACL, PCL and lateral meniscus. POS - [id number] Edited by: Linda Low on 04/22/2019 12:02 PM Narrative 04/22/2019 12:07 PM EDT EXAM: MRI KNEE WITHOUT CONTRAST (RIGHT) HISTORY: * JOINT PAIN, KNEE RIGHT KNEE, CATCHING, CLICKING AND SWELLING WITH PREVIOUSLY DIAGNOSED MENISCUS INJURY COMPARISON: 09/07/2013 MRI. TECHNIQUE: Exam performed on a 1.5 Tabby high-field MRI scanner. Axial proton density with fat suppression, coronal proton density with fat suppression, sagittal T1, proton density with fat suppression, sagittal T2 fat sat sequences. FINDINGS: There is minimal joint fluid. There is no Tan's cyst. Bone marrow signal is normal. There is no fracture or bone contusion. The anterior cruciate ligament and posterior cruciate ligament are intact. The medial collateral ligament and lateral collateral ligament complex are intact. There are no focal cartilage defects. Bones are normal in alignment. The distal quadriceps tendon and patellar tendons are normal. The lateral meniscus is normal without tear. There is a horizontal tear of the medial meniscus anterior horn where there is linear horizontal bright T2 signal. The meniscal tear extends obliquely to the inferior articular surface at the junction between anterior horn and body. There is fraying, irregularity and truncation of the radial margin of the medial meniscal body. The posterior horn and root attachments are intact. There are several small meniscal cysts adjacent to the torn medial meniscus, largest measuring 1.5 cm. Procedure Note Nirmala Ortiz MD - 04/22/2019 EXAM: MRI KNEE WITHOUT CONTRAST (RIGHT) HISTORY: * JOINT PAIN, KNEE RIGHT KNEE, CATCHING, CLICKING AND SWELLING WITH PREVIOUSLY DIAGNOSEDMENISCUS INJURY COMPARISON: 09/07/2013 MRI. TECHNIQUE: Exam performed on a 1.5 Tabby high-field MRI scanner. Axialproton density with fat suppression, coronal proton density with fatsuppression, sagittal T1, proton density with fat suppression, sagittal T2fat sat sequences. FINDINGS: There is minimal joint fluid. There is no Tan's cyst. Bone marrow signalis normal. There is no fracture or bone contusion. The anterior cruciate ligament and posterior cruciate ligament are intact.The medial collateral ligament and lateral collateral ligament complex areintact. There are no focal cartilage defects. Bones are normal inalignment. The distal quadriceps tendon and patellar tendons are normal. The lateral meniscus is normal without tear. There is a horizontal tear ofthe medial meniscus anterior horn where there is linear horizontal brightT2 signal. The meniscal tear extends obliquely to the inferior articularsurface at the junction between anterior horn and body. There is fraying,irregularity and truncation of the radial margin of the medial meniscalbody. The posterior horn and root attachments are intact. There areseveral small meniscal cysts adjacent to the torn medial meniscus, largestmeasuring 1.5 cm. IMPRESSION: 1. Complex tear of the anterior horn and body of the medial meniscus,which extends to the inferior articular surface. A few small parameniscalcysts. 2. Intact ACL, PCL and lateral meniscus. POS - [id number] Edited by: Linda Low on 04/22/2019 12:02 PM Rudy Thornton DO IMG MR EXTREMITY Final Result documented in this encounter Visit Diagnoses Diagnosis Right knee pain, unspecified chronicity- Primary Right knee pain, unspecified chronicity documented in this encounter Care Teams Asset Protection Specialist Relationship Specialty Start Date End Date Eliana Ramos NP [address] [place] [address] [email or web address] PCP - General 10/03/17 09/07/20 Marybeth Ovalle NP [address] [place] [address] [email or web address] PCP - General Family Medicine 09/08/20 Eliana Ramos NP [address] [place] [address] [email or web address] Historical LMR Provider 07/17/1710/07 Rob Barnett MD [address] [place] [address] [email or web address] Historical LMR Provider 07/17/17 10/07/21 Karolina Engle MD [address] [place] [address], [address] [place] [address] [email or web address] Historical LMR Provider 07/17/17 Aroldo Langley NP [address] [place] [address] Historical LMR Provider 07/17/17 2 Escobar Toro CNP [address] [facility], [address] [place] [address] Historical LMR Provider 07/17/17 Nallely Rasheed MD [address] [place] [address] Orthopedics [facility] Sports Medicine, [place] [address] Historical LMR Provider 07/17/17 Neftaly Zhou MD [address] [place] [address] Historical LMR Provider 07/17/17 documented as of this encounter Additional Source Comments The information contained in this document represents components of the legal health record. It is not the complete legal health record.[facility]
--- OUTSIDE RECORDS SUMMARY | 2025-06-22 07:53 | XMS_ITS | Encounter Summary ---
Author Organization [facility] Address [address] [facility] [address] [place] [address] Phone Care Team Providers Care Puff Ironer Name Role Phone Karolina Engle MD Unavailable [phone] Escobar Toro CNP Unavailable [phone] Marybeth Ovalle NP Primary Care Provid er Encounter Details Date Type Department Care Team (Late st Contact Info) Description 06/01/2024 Procedure Pass [facility], Ct Scan - [facility] [address] [place] [address] Social History Tobacco Use Types Packs/Day Years [...] AM EST documented as of this encounter Functional Status * Calculated C-SSRS Risk Score (Lifetime/Recent) Answer Date of Assessment Author No Risk Indicated 06/01/2024 8:39 AM EDT Rina Crawford RN * [place] Suicide Severity Rating Scale (Screener/Recent Self-Report) Question Answer Date of Assessment Author 1. Wish to be (Past 1 Month) No 024 8:39 AM YUET Rina Crawford RN 2. Non-Specific Active Suici kwasi Thoughts (Past 1 Month) No 06/01/2024 8:39 AM EDT Rina Crawford RN 6. Suicidal Behavior (Lifetime) No 8:39 AM EDT Rina Crawford RN documented as of this encounter Plan of Treatment Not on file documented as of this encounter Visit Diagnoses Not on filedocumented in this encounter Care Teams Puff Ironer Relationship Specialty Start Date End Date Marybeth Ovalle NP [address] [place] [address] [email or web address] PCP - General Family Medicine 09/08/20 Karolina Engle MD [address] [place] [address] Historical LMR Provider 07/17/17 Escobar Toro CNP [address] [place] [address] [email or web address] Historical LMR Provider 07/17/17 documented as of this encounter Additional Source Comments The information contained in this document represents components of the legal health record. It is not the complete legal health record.[facility]
--- OUTSIDE RECORDS SUMMARY | 2025-06-22 07:53 | XMS_ITS | Encounter Summary ---
Author Organization [facility] Address [address] [place] [address] [place] [address] Phone Care Team Providers Care Small Boat Engineer Name Role Phone Karolina Engle MD Unavailable [phone] Escobar Toro CNP Unavailable [phone] Marybeth Ovalle NP Primary Care Provid er Encounter Details Date Type Department Care Team (Late st Contact Info) Description 11/09/2022 Procedure Pass [facility], Ct Scan - [address] [address] Social History Tobacco Use Types Packs/Day Years Used Date Smoking Tobacco: Never Smokeless Tobacco: Never Alcohol Use Standard Drinks/Week Comments Yes 0 (1 standard drink = 0.6 oz pur e alcohol) 1x month Comments No Sex and Gender Information Value [...] on filedocumented in this encounter Care Teams Small Boat Engineer Relationship Specialty Start Date End Date Marybeth Ovalle NP [address] [place] [address] [email or web address] PCP - General Family Medicine 09/08/20 Karolina Engle MD [address] [address] [email or web address] Historical LMR Provider 07/17/17 Escobar Toro CNP [address] [place] [address] [email or web address] Historical LMR Provider 07/17/17 documented as of this encounter Additional Source Comments The information contained in this document represents components of the legal health record. It is not the complete legal health record.[facility]
--- OUTSIDE RECORDS SUMMARY | 2025-06-22 07:53 | XMS_ITS | Encounter Summary ---
Author Organization [facility] Address [address] [place] [address] Phone Care Team Providers Care Dry Drug Worker Name Role Phone Eliana Ramos NP Unavailable Rob Barnett MD Unavailable [phone] Karolina Engle MD Unavailable [phone] Aroldo Langley SOAKER HIDES Unavailable [phone] Escobar Toro S[place] HISTORY PROFESSOR Unavailable [phone] Nallely Rasheed MD Unavailable Neftaly Zhou MD Unavailable Eliana Ramos SOAKER HIDES Primary Care Provider Marybeth Ovalle NP Primary Care Provid er Encounter Details Date Type Department Care Team (Late st Contact Info) Description 05/15/2019 Procedure Pass [place] Admitting Dept - Virtual Department 30 [place] [address] Social History Tobacco Use Types Packs/Day Years [...] on filedocumented in this encounter Care Teams Dry Drug Worker Relationship Specialty Start Date End Date Eliana Ramos NP [address] [place] [address] [email or web address] PCP - General 10/03/17 09/07/20 Marybeth Ovalle NP [address] [place] [address] [email or web address] PCP - General Family Medicine 09/08/20 Eliana Ramos SOAKER HIDES [address] [place] [address] [email or web address] Historical LMR Provider 07/17/1710/07 Rob Barnett MD [address] [place] [address] [email or web address] Historical LMR Provider 07/17/17 10/07/21 Karolina Engle MD [address] [place] [address] [email or web address] Historical LMR Provider 07/17/17 Aroldo Langley NP [address] [place] [address] [address] [place] [address] Historical LMR Provider 07/17/17 2 Escobar Toro [place] HISTORY PROFESSOR [address] [place] [address] Historical LMR Provider 07/17/17 Nallely Rasheed MD [address] [place] [address] Orthopedics [facility] Sports Medicine, [place] [address] [email or web address] Historical LMR Provider 07/17/17 Neftaly Zhou MD [address] [place] [address] Historical LMR Provider 07/17/17 documented as of this encounter Additional Source Comments The information contained in this document represents components of the legal health record. It is not the complete legal health record.[facility]
--- OUTSIDE RECORDS SUMMARY | 2025-06-22 07:53 | XMS_ITS | Encounter Summary ---
Author Organization [facility] Address [address] [facility] [address] [place] [address] Phone Care Team Providers Care Freight Handler Name Role Phone Karolina Engle MD Unavailable [phone] Escobar Toro CNP Unavailable [phone] Marybeth Ovalle NP Primary Care Provid er Encounter Details Date Type Department Care Team (Latest Contact Info) Description 03/17/2025 Transcribe Orders Virtual Department 30 [place] [address] Jenna Rich NP [address] [place] [address] Dorsalgia, unspecified (Primary Dx) Social History Tobacco Use Types [...] as food, clothing, or medical care? No 02/23/2025 In the past 12 months have y ou been in a relationship with a person who hurts, threatens, or tries to control you? No 02/23/2025 Are you denied basic needs s uch as food, clothing, or medical care? No 02/23/2025 In the past 12 months have y ou been in a relationship with a person who hurts, threatens, or tries to control you? No 02/23/2025 Comments No Sex and Gender Information Value Date Recorded Sex Assigned at Female 10/07/2017 9:38 AM EST Legal Sex Female 9:20 PM EDT Gender Identity Non-binary 10/11/2024 9:51 PM EST Sexual Orientation Queer 10/07/2017 9: 38 AM EST documented as of this encounter Plan of Treatment Scheduled Orders Name Type Priority Associated Diagnoses Orde r Schedule XR Chest Imaging Routine Dorsalgia, unspecified Expected: 03/17/2025, Expires: 03/17/2026 documented as of this encounter Visit Diagnoses Diagnosis Dorsalgia, unspecified- Primary documented in this encounter Care Teams Freight Handler Relationship Specialty Start Date End Date Marybeth Ovalle NP [address] [place] [address] [email or web address] PCP - General Family Medicine 09/08/20 Karolina Engle MD [address] [place] [address] Historical LMR Provider 07/17/17 Escobar Toro CNP [address] [place] [address] Historical LMR Provider 07/17/17 documented as of this encounter Additional Source Comments The information contained in this document represents components of the legal health record. It is not the complete legal health record.[facility]
--- OUTSIDE RECORDS SUMMARY | 2025-06-22 07:53 | XMS_ITS | Encounter Summary ---
Author Organization [facility] Address [address] [place] [address] Phone Care Team Providers Care Firearms Inspector Name Role Phone Eliana Ramos NP Unavailable Rob Barnett MD Unavailable [phone] Karolina Engle MD Unavailable Aroldo Langley DINKEY MOTOR OPERATOR Unavailable [phone] Escobar Toro SALES TRAINEE Unavailable Nallely Rasheed MD Unavailable [phone] Neftaly Zhou MD Unavailable Eliana Ramos DINKEY MOTOR OPERATOR Primary Care Provider Marybeth Ovalle NP Primary Care Provid er Reason for Referral * MRI/CAT Scan - Closed Specialty Diagnoses / Procedures Referred By Jennifer t Referred To Contact Radiology Diagnoses Rectal bleeding Abdominal pain, LUQ Procedures CT Abdomen/Pelvis Raj Arias MD Phone: tel: fax: [email or web address] Referral ID Status Reason Start Date Expiration Date Visits Re quested Visits Authorized [id number] Closed 09/09/2018 09/09/2019 1 1 Encounter Details Date Type Department Care Team (Late st Contact Info) Description 09/09/2018 Ancillary Orders Virtual Department [address] [place] [address] Raj Arias MD [address] [place] [address] [email or web address] Rectal bleeding; Abdominal pain, LUQ Social History Tobacco Use Types Packs/Day Years [...] documented as of this encounter Results * CT ABDOMEN/PELVIS WITH CONTRAST (09/24/2018 9:55 AM EST) Anatomical Region Laterality Modality Abdomen, Pelvis Computed Tomogra phy 09/24/2018 10:3 0 AM EST Impressions 09/24/2018 11:21 PM EST No evidence of an acute process. Minimal colonic diverticulosis. Status-post cholecystectomy. TOTAL CTDIvol: 20.5 mGy POS - [id number] Edited by: Shayy Keith on 09/24/2018 11:20 AM Narrative 09/24/2018 11:21 PM EST COMPARISON: None. TECHNIQUE: CT of the abdomen and pelvis with IV and oral contrast. Multiplanar reformatted images generated. Automated exposure control utilized. FINDINGS: CT ABDOMEN: Lower thorax: Linear atelectasis and/or scarring in the basal lungs. Also streaky ground-glass opacities more so anteriorly which could be related to atelectasis but otherwise nonspecific. No pleural or pericardial effusions. Liver: No abnormality detected. Gallbladder/biliary tree: Cholecystectomy clips. No biliary ductal dilatation. Spleen: No abnormality detected. Pancreas: No abnormality detected. Adrenal glands: No masses. Kidneys/ureters: Prominence of the pelvicalyceal systems without overt hydronephrosis. Bilateral extra-renal pelves. No lesion detected. Vasculature: No abdominal aortic aneurysm. Hepatic veins and portal vein are patent. Peritoneum: No evidence of free intraperitoneal air, free fluid, or organized collections. Lymph nodes: Increased number of subcentimeter mesenteric lymph nodes which are not pathologically enlarged. These could be reactive. No retroperitoneal lymphadenopathy. Stomach/duodenum: Small hiatal hernia. Body wall: No suspicious mass. CT PELVIS: Bladder: No abnormality detected. Reproductive: Subcentimeter exophytic nodule arising from the posterior uterine body likely represents a subserosal fibroid. Uterus is otherwise unremarkable. Physiologic changes in the ovaries. Bowel: Limited evaluation of the colon and terminal ileum as these structures are unopacified with enteric contrast. Minimal colonic diverticulosis without evidence of diverticulitis. No definite colitis or enteritis. Normal appendix. No obstruction. Peritoneum: No free fluid or organized collections. Lymph nodes: No iliac chain or inguinal lymphadenopathy. Bones: Mild dextroscoliosis of the lumbar spine. No compression deformities. Mild disc space narrowing at L3-4 and L4-5. Scattered sclerotic lesions within the bony pelvis and in the L2 vertebral body likely represent bone islands. No destructive bone lesion. Procedure Note Candice Diane MD - 09/24/2018 COMPARISON: None. TECHNIQUE: CT of the abdomen and pelvis with IV and oral contrast.Multiplanar reformatted images generated. Automated exposure controlutilized. FINDINGS: CT ABDOMEN: Lower thorax: Linear atelectasis and/or scarring in the basal lungs. Alsostreaky ground-glass opacities more so anteriorly which could be relatedto atelectasis but otherwise nonspecific. No pleural or pericardialeffusions. Liver: No abnormality detected. Gallbladder/biliary tree: Cholecystectomy clips. No biliary ductaldilatation. Spleen: No abnormality detected. Pancreas: No abnormality detected. Adrenal glands: No masses. Kidneys/ureters: Prominence of the pelvicalyceal systems without overthydronephrosis. Bilateral extra-renal pelves. No lesion detected. Vasculature: No abdominal aortic aneurysm. Hepatic veins and portal veinare patent. Peritoneum: No evidence of free intraperitoneal air, free fluid, ororganized collections. Lymph nodes: Increased number of subcentimeter mesenteric lymph nodeswhich are not pathologically enlarged. These could be reactive. Noretroperitoneal lymphadenopathy. Stomach/duodenum: Small hiatal hernia. Body wall: No suspicious mass. CT PELVIS: Bladder: No abnormality detected. Reproductive: Subcentimeter exophytic nodule arising from the posterioruterine body likely represents a subserosal fibroid. Uterus is otherwiseunremarkable. Physiologic changes in the ovaries. Bowel: Limited evaluation of the colon and terminal ileum as thesestructures are unopacified with enteric contrast. Minimal colonicdiverticulosis without evidence of diverticulitis. No definite colitis orenteritis. Normal appendix. No obstruction. Peritoneum: No free fluid or organized collections. Lymph nodes: No iliac chain or inguinal lymphadenopathy. Bones: Mild dextroscoliosis of the lumbar spine. No compressiondeformities. Mild disc space narrowing at L3-4 and L4-5. Scatteredsclerotic lesions within the bony pelvis and in the L2 vertebral bodylikely represent bone islands. No destructive bone lesion. IMPRESSION: No evidence of an acute process. Minimal colonic diverticulosis. Status-post cholecystectomy. TOTAL CTDIvol: 20.5 mGy POS - [id number] Edited by: Shayy Keith on 09/24/2018 11:20 AM Raj Arias MD IMG CT ABD/PELVIS Final Resul t documented in this encounter Visit Diagnoses Diagnosis Rectal bleeding Hemorrhage of rectum and anus Abdominal pain, LUQ Rectal bleeding Hemorrhage of rectum and anus Abdominal pain, LUQ documented in this encounter Care Teams Firearms Inspector Relationship Specialty Start Date End Date Eliana Ramos NP [address] [place] [address] [email or web address] PCP - General 10/03/17 09/07/20 Marybeth Ovalle NP [address] [place] [address] [email or web address] PCP - General Family Medicine 09/08/20 Eliana Ramos, DINKEY MOTOR OPERATOR [address] [place] [address] [email or web address] Historical LMR Provider 07/17/1710/07 Rob Barnett MD [address] [place] [address] [email or web address] Historical LMR Provider 07/17/17 10/07/21 Karolina Engle MD [address] [place] [address] [email or web address] Historical LMR Provider 07/17/17 Aroldo Langley NP [address] [place] [address] [address] Historical LMR Provider 07/17/17 2 Escobar Toro SALES TRAINEE [address] [place] [address] Historical LMR Provider 07/17/17 Nallely Rasheed MD [address] [place] [address] Orthopedics & Sports Medicine, [place] [address] Historical LMR Provider 07/17/17 Neftaly Zhou MD [address] [place] [address] Historical LMR Provider 07/17/17 documented as of this encounter Additional Source Comments The information contained in this document represents components of the legal health record. It is not the complete legal health record.[facility]
--- OUTSIDE RECORDS SUMMARY | 2025-06-22 07:53 | XMS_ITS | Encounter Summary ---
Author Organization [facility] Address [address] [place] [address] [place] [address] Phone Care Team Providers Care Rough And Trueing Machine Operator Name Role Phone Karolina Engle MD Unavailable Escobar Toro CNP Unavailable [phone] Marybeth Ovalle NP Primary Care Provid er Encounter Details Date Type Department Care Team (Late st Contact Info) Description 01/18/2025 Procedure Pass OR Admitting Dept - Virtual Department [address] [place] [address] Social History Tobacco Use Types Packs/Day Years [...] as food, clothing, or medical care? No 12/20/2024 In the past 12 months have y ou been in a relationship with a person who hurts, threatens, or tries to control you? No 12/20/2024 Are you denied basic needs s uch as food, clothing, or medical care? No 12/20/2024 In the past 12 months have y ou been in a relationship with a person who hurts, threatens, or tries to control you? No 12/20/2024 Comments No Sex and Gender Information Value [...] on filedocumented in this encounter Care Teams Rough And Trueing Machine Operator Relationship Specialty Start Date End Date Marybeth Ovalle NP [address] [place] [address] [email or web address] PCP - General Family Medicine 09/08/20 Karolina Engle MD [address] [place] [address] Historical LMR Provider 07/17/17 Escobar Toro CNP [address] [place] [address] Historical LMR Provider 07/17/17 documented as of this encounter Additional Source Comments The information contained in this document represents components of the legal health record. It is not the complete legal health record.[facility]
--- OUTSIDE RECORDS SUMMARY | 2025-06-22 07:53 | XMS_ITS | Encounter Summary ---
Author Organization [facility] Address [address] [place] [address] [place] [address] Phone Care Team Providers Care Switchgear Repairer Name Role Phone Karolina Engle MD Unavailable [phone] Escobar Toro CNP Unavailable [phone] Marybeth Ovalle NP Primary Care Provid er Encounter Details Date Type Department Care Team (Late st Contact Info) Description 04/16/2023 Procedure Pass [facility] Endoscopy Admitting Dept Virtual Department [address] [place] [address] Social History Tobacco Use Types Packs/Day Years [...] with a working camera? Not on file Comments No Sex and Gender Information Value [...] on filedocumented in this encounter Care Teams Switchgear Repairer Relationship Specialty Start Date End Date Marybeth Ovalle NP [address] [place] [address] [email or web address] PCP - General Family Medicine 09/08/20 Karolina Engle MD [address] [place] [address] Historical LMR Provider 07/17/17 Escobar Toro CNP [address] [place] [address] Historical LMR Provider 07/17/17 documented as of this encounter Additional Source Comments The information contained in this document represents components of the legal health record. It is not the complete legal health record.[facility]
--- OUTSIDE RECORDS SUMMARY | 2025-06-22 07:53 | XMS_ITS | Encounter Summary ---
Author Organization [facility] Address [address] [place] [address] [place] [address] Phone Care Team Providers Care Detective Investigator Name Role Phone Karolina Engle MD Unavailable [phone] Escobar Toro CNP Unavailable [phone] Marybeth Ovalle NP Primary Care Provid er Encounter Details Date Type Department Care Team (Late st Contact Info) Description 10/02/2023 Procedure Pass OR Admitting Dept - Virtual Department [address] [place] [address] Social History Tobacco Use Types Packs/Day Years [...] Date of Assessment Author No Risk Indicated 10/02/2023 8:00 PM Shasha Ji RN * Vanderwagen Suicide Severity Rating Scale (Screener/Recent Self-Report) Question Answer Date of Assessment Author 1. Wish to be (Past 1 Month) No 024 8:00 PM Shasha Esquivel RN 2. Non-Specific Active Suici kwasi Thoughts (Past 1 Month) No 10/02/2023 8:00 PM Emma Esquivel RN 6. Suicidal Behavior (Lifetime) No 8:00 PM EST Shasha Maldonado RN documented as of this encounter Plan of Treatment Not on file documented as of this encounter Visit Diagnoses Not on filedocumented in this encounter Care Teams Detective Investigator Relationship Specialty Start Date End Date Marybeth Ovalle NP [address] [place] [address] [email or web address] PCP - General Family Medicine 09/08/20 Karolina Engle MD [address] [place] [phone] Historical LMR Provider 07/17/17 Escobar Toro CNP [address] [place] [address] Historical LMR Provider 07/17/17 documented as of this encounter Additional Source Comments The information contained in this document represents components of the legal health record. It is not the complete legal health record.[facility]
--- OUTSIDE RECORDS SUMMARY | 2025-06-22 07:53 | XMS_ITS | Encounter Summary ---
Author Organization [facility] Address [address] [place] [address] Phone Care Team Providers Care Radiology Ct Technologist Name Role Phone Eliana Ramos NP Unavailable Rob Barnett MD Unavailable [phone] Karolina Engle MD Unavailable [phone] Aroldo Langley CORPORATE SECRETARY Unavailable [phone] Escobar Toro ENVIRONMENT COORDINATOR Unavailable Nallely Rasheed MD Unavailable Neftaly Zhou MD Unavailable [phone] Eliana Ramos CORPORATE SECRETARY Primary Care Provider Marybeth Ovalle NP Primary Care Provid er Encounter Details Date Type Department Care Team (Latest Contact Info) Description 09/01/2020 Transcribe Orders Virtual Department 30 [place] [address] Rachel York PA [address] [place] [address] Esophageal spasm (Primary Dx) Social History Tobacco Use Types [...] documented as of this encounter Results * FL BARIUM SWALLOW ESOPHAGRAM DOUBLE CONTRAST (09/08/2020 9:09 AM EST) Anatomical Region Laterality Modality Chest Computed Radiogr aphy 09/08/2020 9:39 AM EST Impressions 09/08/2020 9:45 AM EST Very small sliding hiatal hernia. Otherwise unremarkable barium swallow. Narrative 09/08/2020 9:45 AM EST Biphasic barium swallow. No comparison. FINDINGS: The triage rn film of the neck shows normal epiglottis and aryepiglottic folds. No prevertebral soft tissue swelling. No opaque foreign bodies or significant soft tissue calcifications. Barium swallow shows grossly normal oral pharyngeal motility. Esophageal motility is normal. No stricturing, ulceration or masses. GE junction opens normally. Reflux could not be elicited. A very small sliding hiatal hernia is intermittently visible Procedure Note Molina Urias MD - 09/08/2020 Biphasic barium swallow. No comparison. FINDINGS: The triage rn film of the neck shows normal epiglottis and aryepiglotticfolds. No prevertebral soft tissue swelling. No opaque foreign bodies orsignificant soft tissue calcifications. Barium swallow shows grossly normal oral pharyngeal motility. Esophagealmotility is normal. No stricturing, ulceration or masses. GE junction opens normally. Reflux could not be elicited. A very small sliding hiatal hernia is intermittently visible IMPRESSION: Very small sliding hiatal hernia. Otherwise unremarkable barium swallow. Rachel MCDONNELL IMG FL MISC Final Resul t documented in this encounter Visit Diagnoses Diagnosis Esophageal spasm- Primary Dyskinesia of esophagus Esophageal spasm Dyskinesia of esophagus documented in this encounter Care Teams Radiology Ct Technologist Relationship Specialty Start Date End Date Eliana Ramos, CORPORATE SECRETARY [address] [place] [address] [email or web address] PCP - General 10/03/17 09/07/20 Marybeth Ovalle NP [address] [place] [address] [email or web address] PCP - General Family Medicine 09/08/20 Eliana Ramos CORPORATE SECRETARY [address] [place] [address] [email or web address] Historical LMR Provider 07/17/1710/07 Rob Barnett MD [address] [place] [address] [email or web address] Historical LMR Provider 07/17/17 10/07/21 Karolina Engle MD [address] [place] [address] [email or web address] Historical LMR Provider 07/17/17 Aroldo Langley NP [address] [place] [address] [address] Historical LMR Provider 07/17/17 Escobar Morales ENVIRONMENT COORDINATOR [address] [place] [address] [email or web address] Historical LMR Provider 07/17/17 Nallely Rasheed MD [address] [facility] [place] [address] [email or web address] Historical LMR Provider 07/17/17 Neftaly Zhou MD [address] [place] [address] Historical LMR Provider 07/17/17 documented as of this encounter Additional Source Comments The information contained in this document represents components of the legal health record. It is not the complete legal health record.[facility]
--- OUTSIDE RECORDS SUMMARY | 2025-06-22 07:53 | XMS_ITS | Encounter Summary ---
Author Organization [facility] Address [address] [facility] [address] [place] [address] Phone Care Team Providers Care Atomic Physics Teacher Name Role Phone Karolina Engle MD Unavailable [phone] Escobar Toro CNP Unavailable [phone] Marybeth Ovalle NP Primary Care Provid er Reason for Referral * MRI/CAT Scan - Closed Specialty Diagnoses / Procedures Referred By Jennifer mejia Referred To Contact Radiology Diagnoses Lymphadenopathy Procedures CT Neck CHG CT NECK TISSUE CONTRAST Colt Tovar MD Phone: tel: fax: [email or web address] Referral ID Status Reason Start Date Expiration Date Visits Re quested Visits Authorized [id number] Closed 11/09/2022 01/08/2023 1 1 Encounter Details Date Type Department Care Team (Latest Contact Info) Description 11/09/2022 Transcribe Orders Virtual Department 30 [place] [address] Colt Tovar MD [address] [address] [email or web address] Lymphadenopathy (Primary Dx) Social History Tobacco Use Types [...] as of this encounter Results * CT NECK SOFT TISSUE WITH CONTRAST (11/26/2022 8:33 AM EST) Anatomical Region Laterality Modality Neck Computed Tomogra phy 11/26/2022 12:0 9 PM EST Impressions 11/26/2022 12:25 PM EST Mildly prominent bilateral submental and level 2A lymph nodes. Findings are nonspecific by CT, possibly reactive. Continued clinical follow-up recommended to ensure benign behavior. No discrete soft tissue abnormality at the midline submental region demonstrated by CT. Narrative 11/26/2022 12:[address] NECK SOFT TISSUE WITH CONTRAST History: Palpable abnormality at the midline neck, intervally resolved TECHNIQUE: Multidetector-row CT of the neck was performed with intravenous contrast using tailored dose modulation techniques. Images were reconstructed in the axial, coronal, and sagittal planes. COMPARISON: There is no prior study available for comparison. FINDINGS: Aerodigestive Tract: The mucosa appears symmetrical. Lymph Nodes: There are mildly prominent submental lymph nodes measuring up to 8 mm and 9 mm in short axis respectively. There are mildly prominent bilateral level 2A lymph nodes measuring up to 10 mm on the left and 9 mm on the right. Salivary Glands: No obvious lesion is present. Thyroid Gland: The gland is homogenous in attenuation. Vessels: The major cervical vessels enhance normally. Paranasal Sinuses and Mastoids: Mucoperiosteal thickening and partial opacification of the bilateral maxillary and right sphenoid sinuses. Brain and Orbits: No detectable abnormality is present in the imaged portions of the brain and orbits within limitations of nontargeted imaging. Lung Apices: No abnormal opacity is present. Bones and Soft Tissues: No discrete soft tissue abnormality demonstrated at the midline submental region. Procedure Note Laura Vincent MD - 11/26/2022 CT NECK SOFT TISSUE WITH CONTRAST History: Palpable abnormality at the midline neck, intervally resolved TECHNIQUE: Multidetector-row CT of the neck was performed with intravenouscontrast using tailored dose modulation techniques. Images werereconstructed in the axial, coronal, and sagittal planes. COMPARISON: There is no prior study available for comparison. FINDINGS: Aerodigestive Tract: The mucosa appears symmetrical. Lymph Nodes: There are mildly prominent submental lymph nodes measuring upto 8 mm and 9 mm in short axis respectively. There are mildly prominentbilateral level 2A lymph nodes measuring up to 10 mm on the left and 9 mmon the right. Salivary Glands: No obvious lesion is present. Thyroid Gland: The gland is homogenous in attenuation. Vessels: The major cervical vessels enhance normally. Paranasal Sinuses and Mastoids: Mucoperiosteal thickening and partialopacification of the bilateral maxillary and right sphenoid sinuses. Brain and Orbits: No detectable abnormality is present in the imagedportions of the brain and orbits within limitations of nontargetedimaging. Lung Apices: No abnormal opacity is present. Bones and Soft Tissues: No discrete soft tissue abnormality demonstratedat the midline submental region. IMPRESSION: Mildly prominent bilateral submental and level 2A lymph nodes. Findingsare nonspecific by CT, possibly reactive. Continued clinical follow-uprecommended to ensure benign behavior. No discrete soft tissue abnormalityat the midline submental region demonstrated by CT. Colt Tovar MD IMG CT XSPECIALTY ORDERABL ES Final Result documented in this encounter Visit Diagnoses Diagnosis Lymphadenopathy- Primary Enlargement of lymph nodes Lymphadenopathy Enlargement of lymph nodes documented in this encounter Care Teams Atomic Physics Teacher Relationship Specialty Start Date End Date Marybeth Ovalle NP [address] [place] [address] [email or web address] PCP - General Family Medicine 09/08/20 Karolina Engle MD [address] [place] [address], [address] [place] [address] Historical LMR Provider 07/17/17 Escobar Toro CNP [address] [facility], [address] [place] [address] [email or web address] Historical LMR Provider 07/17/17 documented as of this encounter Additional Source Comments The information contained in this document represents components of the legal health record. It is not the complete legal health record.[facility]
--- OUTSIDE RECORDS SUMMARY | 2025-06-22 07:53 | XMS_ITS | Encounter Summary ---
Author Organization [facility] Address [address] [place] [address] [place] [address] Phone Care Team Providers Care Clay Shop Supervisor Name Role Phone Karolina Engle MD Unavailable [phone] Escobar Toro CNP Unavailable [phone] Marybeth Ovalle NP Primary Care Provid er Encounter Details Date Type Department Care Team (Late st Contact Info) Description 03/12/2024 Procedure Pass OR Admitting Dept - Virtual Department 30 [place] [address] Social History Tobacco Use Types Packs/Day Years [...] on filedocumented in this encounter Care Teams Clay Shop Supervisor Relationship Specialty Start Date End Date Marybeth Ovalle NP [address] [place] [address] [email or web address] PCP - General Family Medicine 09/08/20 Karolina Engle MD [address] [place] [address] Historical LMR Provider 07/17/17 Escobar Toro CNP [address] [place] [address] Historical LMR Provider 07/17/17 documented as of this encounter Additional Source Comments The information contained in this document represents components of the legal health record. It is not the complete legal health record.[facility]
--- OUTSIDE RECORDS SUMMARY | 2025-06-22 07:53 | XMS_ITS | Encounter Summary ---
Author Organization [facility] Address [address] [place] [address] Phone Care Team Providers Care Station Helper Name Role Phone Eliana Ramos NP Unavailable Rob Barnett MD Unavailable Karolina Engle MD Unavailable [phone] Aroldo Langley BRAND MGR Unavailable Escobar Toro HIM DIRECTOR Unavailable Nallely Rasheed MD Unavailable Neftaly Zhou MD Unavailable Eliana Ramos BRAND MGR Primary Care Provider Marybeth Ovalle NP Primary Care Provid er Encounter Details Date Type Department Care Team (Late st Contact Info) Description 09/25/2018 Procedure Pass [facility] Admitting Dept Virtual Department 30 [place] [address] Social History Tobacco Use Types Packs/Day Years [...] on filedocumented in this encounter Care Teams Station Helper Relationship Specialty Start Date End Date Eliana Ramos NP [address] [place] [address] [email or web address] PCP - General 10/03/17 09/07/20 Marybeth Ovalle NP [address] [place] [address] [email or web address] PCP - General Family Medicine 09/08/20 Eliana Ramos BRAND MGR [address] [place] [address] [email or web address] Historical LMR Provider 07/17/1710/07 Rob Barnett MD [address] [place] [address] [email or web address] Historical LMR Provider 07/17/17 10/07/21 Karolina Engle MD [address] [place] [address] [email or web address] Historical LMR Provider 07/17/17 Aroldo Langley NP [address] [place] [address] [address] [place] [address] Historical LMR Provider 07/17/17 2 Escobar Toro HIM DIRECTOR [address] [place] [address] Historical LMR Provider 07/17/17 Nallely Rasheed MD [address] [place] [address] [facility], [place] [address] [email or web address] Historical LMR Provider 07/17/17 Neftaly Zhou MD [address] [place] [address] Historical LMR Provider 07/17/17 documented as of this encounter Additional Source Comments The information contained in this document represents components of the legal health record. It is not the complete legal health record.[facility]
--- OUTSIDE RECORDS SUMMARY | 2025-06-22 07:53 | XMS_ITS | Clinical Summary ---
Author Organization [facility] Address [address] [place] [address] Phone Care Team Providers Care Draw Fire Operator Name Role Phone Karolina Engle MD Unavailable [phone] Escobar Toro CNP Unavailable [phone] Marybeth Ovalle NP Primary Care Provid er Allergies Active Allergy Reactions Criticality Noted Date Comments Pineapple 04/15/2023 Tingling , itchy eyes Sulfa (Sulfonamide Antibiotics) Hives Medium 08/07/2017 Medications albuterol 90 mcg/actuation inhaler Inhale into the lungs every 4 (four) hours as needed. Active buPROPion (WELLBUTRIN XL) 300 MG ER 24 hr tablet 300 mg daily. 0 9 Active triamcinolone acetonide 0.1 % cream Apply topically as needed. Active metFORMIN (GLUCOPHAGE-XR) 500 MG 24 hr tablet Take 500 mg by mouth daily. 2 Active budesonide-form oterol (SYMBICORT) 160-4.5 mcg/actuation inhaler Inhale 2 puffs into the lungs 2 (two) times a day. 10.2 g 11 2 Active omeprazole (PRILOSEC) 20 mg TbEC Take 20 mg by mouth daily before breakfast. Active mupirocin (BACTROBAN) 2 % ointment Apply topically 4 (four) times a day. 22 g 4 Active amoxicillin-cla vulanate (AUGMENTIN) 500-125 mg per tablet Active EPINEPHrine 0.3 mg/0.3 mL auto-injector Inject into the muscle once as needed. Active famotidine (PEPCID) 40 MG tablet take 1 tablet by mouth twice a day for 90 days Active ergocalciferol (DRISDOL) 50,000 unit capsule Take 1 capsule by mouth once a week. Active SUMAtriptan (IMITREX) 50 MG tablet Take 50 mg by mouth once as needed for migraine. Active buPROPion (WELLBUTRIN XL) 150 MG ER 24 hr tablet Take 150 mg by mouth daily. Active Active Problems Problem Noted Date Diagnosed Date Vulvar lump 03/23/2024 Overview (11/26/2024): Status post excision of a smaller fibrous lesion on March 12, 2024 the pathology showed to have chronic inflamed fibrous tissue. Currently has persistence of a larger subcutaneous soft tissue mass, not fluctuant, not amenable to fine-needle drainage, adjacent to the area of the previous excision, approximately 2 x 1 cm Oct 2024-area has persisted and again become more swollen Assessment & Plan (11/26/2024 12:42 PM EST): Reviewed the option of a larger wedge resection, as the previous surgery was to remove the palpable area without a larger resection. Again the area of concern in the area to be removed should be marked in the preoperative area . Again cannot guarantee complete removal, risks of infection bleeding pain afterwards possibly scarring. Consent form signed, will try to schedule at their preferred time next week Assessment & Plan (03/31/2024 10:15 AM EDT): Discussed that a larger excision of the upper labia minora would be required to address this, although cannot guarantee some adjacent area becoming similarly enlarged. This been involved more trapezoid -shaped excision than a triangular wedge excision, given the size and location of this at the base of the labium as opposed to at the edge. This will result in significant asymmetry, have a higher chance of residual scar tissue etc. Leila would like to proceed with this but prefers to wait till after the summer is over so they can enjoy swimming and other outdoor summer activities Assessment & Plan (03/23/2024 10:08 PM EDT): Inner labial lesion is cystic, unrelated to the surgery site, recommend soaks and application of mupirocin ointment The one that is superior and lateral to the previous incision seems similar to what she was experiencing in the area that had been excised. Does not seem to be infected, does not palpate like an abscess there is no erythema so I doubt any cellulitis and I do not think antibiotics are warranted at the moment. I do not know if it will respond to the soaks that I recommend for the cystic area, so I recommend follow-up in the office within 3 days. No explanation for why a deep tissue fiber structure such as the one excised would become inflamed like this that is not glandular or cystic in nature. 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 Can be accomplished under sedation when the local lidocaine would not be required, cannot guarantee complete excision as this is relatively small and in that circumstance can be difficult to remove in its entirety. They greatly prefer having this done in the operating room. Risks of infection bleeding pain were discussed as well as care afterwards including daily soaks and salt water for about a week, application of topical antibiotic ointment or nonmedicated ointment etc. Will need to alfreda directly over the area of the cyst in the preop, given that it is fairly small and is actually more difficult to excise Gender dysphoria 10/02/2023 Asthma 05/21/2022 History of meniscectomy of right knee 06/26/2019 Encounters Date Type Department Care Team Description 05/20/2025 8:54 AM EDT - 05/20/2025 11:59 PM EDT Hospital Encounter Non-Invasive Cardiology [address] [place] [address] Marybeth Ovalle NP Discharge Disposition: Home or Self Care 05/14/2025 Transcribe Orders Virtual Department [address] [place] [address] Marybeth Ovalle NP Atypical chest pain (Primary Dx) from Last 3 Months Family History Medical History Relation Comments No Known Problems Father No Known Problems Mother No Known Problems Unspecified Cancer Neg Hx Clotting disorder Neg Hx Collagen disease Neg Hx Depression Neg Hx Diabetes Neg Hx Dislocations Neg Hx Gout Neg Hx Infl. arthritis Neg Hx Osteoporosis Neg Hx Scoliosis Neg Hx Relation Status Comments Father Mother Alive Unspecified Social History Tobacco Use Types Packs/Day Years Used Date Smoking Tobacco: Never Smokeless Tobacco: Never Tobacco Cessation:Counseling Given: Not Answered Alcohol Use Standard Drinks/Week Comments Yes 0 [...] Orientation Queer 10/07/2017 9: 38 AM EST Last Filed Vital Signs Vital Sign Reading Time Taken Comments Blood Pressure 120/82 05/20/2025 10:02 AM EDT Pulse 79 02/23/2025 12:07 PM EDT Temperature 36.1 C (97 F) 02/23/2025 11:37 AM EDT Respiratory Rate 15 02/23/2025 12:07 PM EDT Oxygen Saturation 95% 02/23/2025 12:07 PM EDT Inhaled Oxygen Concentration - - Weight 136.1 kg (300 lb) 02/17/2025 11:17 AM EDT Height 172.7 cm (5' 8 ) 02/17/2025 11:17 AM EDT Body Mass Index 45.61 02/17/2025 11:17 AM EDT Plan of Treatment Health Maintenance Due Date Last Done Comments DEPRESSION SCREENING 1993 HEPATITIS C SCREENING 1999 HIV ONE-TIME SCREENING (18-65 YEARS) 1999 PNEUMOCOCCAL VACCINES (0-49 years) (2 of 2 - PCV) 03/02/2016 03/02/2015 MAMMOGRAM 2021 INFLUENZA VACCINE (#1) 2025 , 07/25/2023, 05/22/2022, Additional history exists CREATININE LEVEL 12/20/2025 12/20/2024, 10/2023, 05/07/2023, Additional history exists PAP SMEAR 07/25/2026 07/25/2023, 09/04/2018 SCREENING FOR DIABETES 12/21/2027 12/20/2024 Adult Td,Tdap Booster 05/23/2031 05/23/2021, 011 COVID-19 VACCINE Completed 07/10/2024, 07/2024, 10/18/2023, Additional history exists SMOKING STATUS SCREENING (Once After 26 Yrs) Completed 02/23/2025 HEPATITIS A VACCINES Aged Out No long er eligible based on patient's age to complete this topic HIB VACCINES Aged Out No longer eligi ble based on patient's age to complete this topic MENINGOCOCCAL VACCINES (ACWY) Aged Out No longer eligible based on patient's age to complete this topic MENINGOCOCCAL VACCINES (B) Aged Out N o longer eligible based on patient's age to complete this topic Medical Devices Implanted Type Area Sanitation Truck Cleaner Device Identifier Shelf Expiration Date Model / Serial / Lot Clip Clip Left: Axilla Procedures Procedure Name Priority Date/Time Associated Diagnosis Comments STRESS TEST EXERCISE Routine 05/20/2025 10:29 AM EDT Atypical chest pain BASIC METABOLIC PANEL STAT 12/20/2024 5:35 PM EDT PAP TEST Routine 07/25/2023 12:00 AM EDT from Last 3 Months or Most Recently Relevant to Health Maintenance Results * STRESS TEST EXERCISE (05/20/2025 10:29 AM EDT) Max Predicted Heart Rate 177 bpm [facility] Max BP Systolic 178 mmHg [facility] Max BP Diastolic 76 mmHg [facility] Max HR 151 BPM [facility] Resting HR 78 BPM [facility] Resting BP Systolic 120 mmHg [facility] Resting BP Diastolic 90 mmHg [facility] Peak METS 9.9 METS [facility] Peak HR 151 BPM [facility] Peak BP Systolic 160 mmHg [facility] Peak BP Diastolic 80 mmHg [facility] Anatomical Region Laterality Modality Heart Other 05/20/2025 9:22 AM EDT 05/20/2025 10:16 AM EDT Narrative 05/20/2025 12:48 PM EDT Stress Findings The resting heart rate was 78 BPM. The resting BP was 120/90 mmHg. A peak heart rate of 151 BPM was achieved. Peak BP was 160/80 mmHg. ECG Report Pt exercised for 7: 55 min on a JENS protocol achieving 10.4 METS. Test terminated due to fatigue. Baseline resting HR was 78 bpm. Max heart rate achieved was 151 bpm (85% MPHR). 1. ECG: Baseline ECG showed sinus rhythm without significant ST-T wave abnormality. With exercise there were no ECG changes meeting criteria for ischemia. 2. SYMPTOMS: No chest pain or symptoms concerning for angina 3. EXERCISE PHYSIOLOGY: Average functional capacity for age. Blood pressure: 120/90 at rest, 160/80 with exercise, and 120/82 on discharge from stress lab. 4. ARRHYTHMIAS: Occasional isolated PVCs Conclusion: Normal exercise stress test. There were no EKG changes meeting criteria for ischemia. There were no symptoms concerning for angina. See attached stress report for full details. Christine Wright NP with Dr. Rich Response to Stress The patient exercised for minutes and seconds, achieving 9.9 METS at peak exercise. Baseline blood pressure was 120/90 mmHg, and baseline heart rate was 78 bpm. Peak blood pressure was 160/80 mmHg. The patient achieved a peak heart rate of 151 bpm, which is% of their maximum predicted heart rate. Rate pressure product [place] [id number]. us Marybeth Ovalle NP CV STRESS ORDERABLES Final Result * (ABNORMAL) Basic metabolic panel (12/20/2024 5:35 PM EDT) SODIUM 140 133 - 146 mmol/L [facility] CHLORIDE 103 96 - 108 mmol/L [facility] POTASSIUM 4.0 3.3 - 5.1 mmol/L [facility] CO2 26 21 - 35 mmol/L [facility] BUN 17 6 - 19 mg/dL [facility] CREATININE 0.80 0.5 - 1.5 mg/dL [facility] GLUCOSE 121(H) 70 - 99 mg/dL [facility] CALCIUM 9.0 8.4 - 10.3 mg/dL [facility] EGFR 94 >59 mL/min/1.7 3m2 [facility] Comment:Estimated glomerular filtration rate calculated using the CKD-EPI refit equation. ANION GAP 15 10 - 20 mmol/L [facility] Blood 12/20/2024 5:35 PM EDT 12/20/2024 5:41 PM EDT Tone Buchanan MD LAB BLOOD ORDERABLES Final Result [address] [address] * Pap Test (07/25/2023 12:00 AM EDT) 07/25/2023 07/26/2023 9:0 4 AM EDT Narrative SEE NARRATIVE - 07/31/2023 11:03 AM EDT [address] [address] Machine I Trimmer: Jenna Ward MD [employer] INSPECTOR Cytology Report FINAL DIAGNOSIS A. PAP SMEAR (SUREPATH) CE: SPECIMEN ADEQUACY: Satisfactory for evaluation; transformation zone present. INTERPRETATION: NEGATIVE FOR INTRAEPITHELIAL LESION OR MALIGNANCY. Coccobacilli consistent with shift in [place] Electronically Signed Out By: CHRISTIANO Mckinney(ASCP) The Pap test is a screening test primarily for squamous cancers and precursors and has associated false-negative and false-positive results. New technologies such as liquid-based preparations may decrease but will not eliminate all false-negative results. Regular sampling and follow-up of unexplained clinical signs and symptoms are recommended to minimize false negative results. PROCEDURES/ADDENDA HPV Testing (Requested) Ordered Date: 07/26/2023 A. PAP SMEAR (SUREPATH) CE: Human Papilloma Virus Test NEGATIVE for high-risk Human Papilloma Virus types 16, 18, 45 and the Other high risk probe set (Includes 31, 33, 35, 39, 51, 52, 56, 58, 59, 66, 68) Note: Testing performed by [employer] HR-HPV analysis. Clinical correlation is advised. This HPV test was performed at [facility], [address] [place] [address]. This test has been FDA approved for [facility] cervical cytology specimens. The accuracy and precision of this test for all other specimen sources has been verified in the Cytopathology Laboratory of the [facility] and has not been cleared or approved by the U.S. Food and Drug Administration. Clinical correlation is advised. CLINICAL HISTORY Date of Last Menstrual Period: 07-05-2023 Other Clinical Conditions: Screening Pap SPECIMEN SOURCE A: PAP SMEAR (SUREPATH) CE Patient Name: LEILA FRANK : 1980 (Age: 42) Sex: F Institution: [facility] Location: [facility] Date of Collection: 07/25/2023 Date of Reported: 07/31/2023 11:03 Results to: Marybeth BLANTONP Marybeth Ovalle TERMINAL BLOCK ASSEMBLER CYTOLOGY ORDERABLES Final Result SEE NARRATIVE from Last 3 Months or Most Recently Relevant to Health Maintenance Insurance [facility] S S S Member Subscriber Plan / Payer (Ef fective 2022-Present) Name:Leila Frank Relation to Subscriber:Self Name:Leila Frank Payer ID:Not on file Type:PPO Address: [place] [id number] O [facility]CS O [facility]CS Advance Directives For more information, please contact: [phone] (9AM - 5PM [facility], Saturday-Saturday) * Full Code (Latest Code Status on File) Date Activated Date Inactivated Comments 03/12/2024 12:04 PM Question Answer Comments Code Status Confirmed With: Patient * Full Code Date Activated Date Inactivated Comments 10/02/2023 11:07 AM 03/12/2024 12:04 PM Question Answer Comments Code Status Confirmed With: Other (specify below ) Code Discussion Comments: periop * Full Code (Presumed) Date Activated Date Inactivated Comments 05/15/2019 6:40 AM 05/16/2019 4:07 AM Care Teams Draw Fire Operator Relationship Specialty Start Date End Date Marybeth Ovalle NP [address] [place] [address] [email or web address] PCP - General Family Medicine 09/08/20 Karolina Engle MD [address] [place] [address] Historical LMR Provider 07/17/17 Escobar Toro CNP [address] [place] [address] Historical LMR Provider 07/17/17 Additional Source Comments The information contained in this document represents components of the legal health record. It is not the complete legal health record.[facility]
--- OUTSIDE RECORDS SUMMARY | 2025-06-22 07:53 | XMS_ITS | Encounter Summary ---
Author Organization [facility] Address [address] [place] [address] [place] [address] Phone Care Team Providers Care Wood Caulker Name Role Phone Karolina Engle MD Unavailable [phone] Escobar Toro CNP Unavailable [phone] Marybeth Ovalle NP Primary Care Provid er Encounter Details Date Type Department Care Team (Late st Contact Info) Description 07/08/2024 Procedure Pass [place] Admitting Dept - Virtual Department [address] [place] [address] Social History Tobacco Use Types Packs/Day Years [...] on filedocumented in this encounter Care Teams Wood Caulker Relationship Specialty Start Date End Date Marybeth Ovalle NP [address] [place] [id number] [email or web address] PCP - General Family Medicine 09/08/20 Karolina Engle MD [address] [place] [address] Historical LMR Provider 07/17/17 Escobar Toro CNP [address] [place] [address] Historical LMR Provider 07/17/17 documented as of this encounter Additional Source Comments The information contained in this document represents components of the legal health record. It is not the complete legal health record.[facility]
--- OUTSIDE RECORDS SUMMARY | 2025-06-22 07:53 | XMS_ITS | Encounter Summary ---
Author Organization [facility] Address [address] [place] [address] Phone Care Team Providers Care Strategic Marketing Leader Name Role Phone Eliana Ramos NP Unavailable Rob Barnett MD Unavailable [phone] Karolina Engle MD Unavailable Aroldo Langley ARCH PAD CEMENTER Unavailable [phone] Escobar Toro CLEAR COAT SPRAYER Unavailable [phone] Nallely Rasheed MD Unavailable Neftaly Zhou MD Unavailable [phone] Eliana Ramos ARCH PAD CEMENTER Primary Care Provider Marybeth Ovalle NP Primary Care Provid er Encounter Details Date Type Department Care Team (Late st Contact Info) Description 04/14/2019 Procedure Pass [facility], [address] [address] Social History Tobacco Use Types Packs/Day Years [...] AM EST documented as of this encounter Last Filed Vital Signs Vital Sign Reading Time Taken Comments Blood Pressure - - Pulse - - Temperature - - Respiratory Rate - - Oxygen Saturation - - Inhaled Oxygen Concentration - - Weight 127 kg (280 lb) 04/17/2019 11:35 AM EDT Height 172.7 cm (5' 8 ) 04/17/2019 11:35 AM EDT Body Mass Index 42.57 04/17/2019 11:35 AM EDT documented in this encounter Plan of Treatment Not on file documented as of this encounter Visit Diagnoses Not on filedocumented in this encounter Care Teams Strategic Marketing Leader Relationship Specialty Start Date End Date Eliana Ramos NP [address] [place] [address] [email or web address] PCP - General 10/03/17 09/07/20 Marybeth Ovalle NP [address] [place] [address] [email or web address] PCP - General Family Medicine 09/08/20 Eliana Ramos NP [address] [place] [address] [email or web address] Historical LMR Provider 07/17/1710/07 Rob Barnett MD [address] [place] [address] [email or web address] Historical LMR Provider 07/17/17 10/07/21 Karolina Engle MD [address] [place] [address], [address] [place] [address] [email or web address] Historical LMR Provider 07/17/17 Aroldo Langley NP [address] [place] [address] [address] [place] [address] Historical LMR Provider 07/17/17 2 Escobar Toro CNP [address] [facility], 2nd [place] [address] Historical LMR Provider 07/17/17 Nallely Rasheed MD [address] [place] [address] [facility], [place] [address] Historical LMR Provider 07/17/17 Neftaly Zhou MD [address] [place] [address] Historical LMR Provider 07/17/17 documented as of this encounter Additional Source Comments The information contained in this document represents components of the legal health record. It is not the complete legal health record.[facility]
--- OUTSIDE RECORDS SUMMARY | 2025-06-22 07:53 | XMS_ITS | Encounter Summary ---
Author Organization [facility] Address [address] [place] [address] [place] [address] Phone Care Team Providers Care 4 H Youth Development Specialist Name Role Phone Karolina Engle MD Unavailable [phone] Escobar Toro CNP Unavailable [phone] Marybeth Ovalle NP Primary Care Provid er Encounter Details Date Type Department Care Team (Late st Contact Info) Description 02/23/2025 Procedure Pass [facility] Endoscopy Admitting Dept Virtual Department [address] [place] [address] Social History Tobacco Use Types Packs/Day Years [...] on filedocumented in this encounter Care Teams 4 H Youth Development Specialist Relationship Specialty Start Date End Date Marybeth Ovalle NP [address] [place] [address] [email or web address] PCP - General Family Medicine 09/08/20 Karolina Engle MD [address] [place] [address] Historical LMR Provider 07/17/17 Escobar Toro CNP [address] [place] [address] Historical LMR Provider 07/17/17 documented as of this encounter Additional Source Comments The information contained in this document represents components of the legal health record. It is not the complete legal health record.[facility]
--- NOTE | 2025-06-22 07:54 | MHC.OFFVIS ---
Vital Signs 06/22/25 07:55 Height 5 ft 8 in BMI Reason not done Patient refused/unable BP 128/88 Blood Pressure Location Rt brachial Position Sitting Pulse 65 Pulse Source Pulse Oximeter Pulse Oximetry (%) 98 Oxygen Delivery Method Room Air Intake Visit Reasons: 3 mo follow up Intake Note: Patient presents follow up Cognitive/Sleep. No Labs. Accompanied by: Self / Same As Patient Allergies Sulfa (Sulfonamide Antibiotics) Allergy (Mild, Verified 06/22/25 07:58) Hives HPI Comments Details: 44y/o trans-male comes for follow up of cognitive issues. 05/2025 ENT Evaluation reviewed with pt. today, not a good candidate for Inspire therapy. Mallampti score is 4 and lateral mucosal thickening of 1cm though no erythema or swelling. Normal hard palate surface. He feels during the Speech and hearing evaluation 80 point drop between immediate memory and working memory. Neuro cognitive testing evaluation is pending at the [facility] Brain and Memory clinic. 10/2023 MRI reviewed with patient, normal structures and MRI. Labs reviewed with pt today. He c/o entire body twitching though not painful, howevere spontaneous and usually when trying to relax her back, stomach and thighs and feet twitch. it started when she discontinued Omeprazole in November 2024. She also discontinued Wellbuting in Apr 2025 and started to take Famotidine for her acid reflux. He is anxious due to STM concerns, since the speech evaluation. He gets lost in conversations and recall is more difficult since having a child, though had memory issues since his 20s. 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 Speech and cognitive evaluation with complex findings and differences in his immediate memory and delayed memory, aphasia , word finding difficulties and forgets names, courses, people repeats frequently. Cookie cutter, or ornament , and couch or bed word switching. He also has a h/o OCD behaviour with binge eating and purging. He has ongoing depression with anxiety, and manages symptoms with cognitive behavior therapy once a month. 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 Borderline / prediabetes A1c is elevated though well managed on Metformin 500mg po qhs. [facility] Medical History Other gender identity disorders Cognitive change Hiatal hernia GERD (gastroesophageal reflux disease) Asthma Vitamin D deficiency Binge eating disorder B12 deficiency Morbid obesity FH: cholecystectomy Surgical History H/O mastectomy H/O knee surgery Family History Father No problems noted. Social History Household Members: Children Housing: [facility] Alcohol intake: current Comment: seldom Patient Tobacco Use Status: Never used Tobacco Physical Exam Vital Signs: Last Vital Signs Pulse 65 06/22/25 07:55 BP 128/88 06/22/25 07:55 Pulse Ox 98 06/22/25 07:55 Oxygen Delivery Method Room Air 06/22/25 07:55 Const Orientation/consciousness: patient oriented x3 Eyes Pupils: Equal, round and reactive pupils present Neck Neck: Yes full ROM Resp Effort & Inspection: normal respiratory effort and able to speak in complete sentences Neuro General: patient oriented x3 and moves all extremities Cranial nerves: Yes Facial sensation intact/muscles of mastication intact, Yes Equal, round and reactive pupils present, Yes Normal accommodation reflex present, Yes Normal facial strength present, Yes Midline tongue present, Yes Ability to bilaterally rotate head present and Yes Ability to bilaterally elevate shoulders present Gait exam (Neuro): Normal gait present Motor exam (neuro): 5/5 motor strength present throughout and Normal motor muscle tone present throughout Psych Appearance: grossly normal Affect: Anxious affect present Attitude: cooperative Results Reviewed Results Reviewed: MRI 10/2023 normal MRI. 04/2025 ENT evaluation Assessment & Plan Assessment & Plan (1) Vitamin D deficiency: Code(s): E55.9 - Vitamin D deficiency, unspecified Category: Medical (2) Anemia: Code(s): D64.9 - Anemia, unspecified Category: Medical Qualifiers: Anemia type: iron deficiency Iron deficiency anemia type: other iron deficiency Qualified Code(s): D50.8 - Other iron deficiency anemias (3) Cognitive change: Comment: ? undiagnosed ADD, ADHD ? poorly controlled mood/ depression/ anxiety++ Code(s): R41.89 - Other symptoms and signs involving cognitive functions and awareness Category: Medical (4) B12 deficiency: Code(s): E53.8 - Deficiency of other specified B group vitamins Category: Medical (5) Morbid obesity: Comment: Weight Managment referral declined today. Code(s): E66.01 - Morbid (severe) obesity due to excess calories Category: Medical (6) Binge eating disorder: Code(s): F50.81 - Binge eating disorder Category: Medical Qualifiers: Eating disorder severity or remission status: unspecified severity Qualified Code(s): F50.819 - Binge eating disorder, unspecified (7) Fatigue: Code(s): R53.83 - Other fatigue Category: Medical Qualifiers: Fatigue type: chronic, unspecified Qualified Code(s): R53.82 - Chronic fatigue, unspecified (8) Sleep apnea: Code(s): G47.30 - Sleep apnea, unspecified Category: Medical Qualifiers: Sleep apnea type: obstructive Qualified Code(s): G47.33 - Obstructive sleep apnea (adult) (pediatric) Plan DILCIA compliance report reviewed with patient, continue cpap therapy as pt. has refreshed sleep, will evaluate with PSG Cognitive Memory Disorder Awaiting Neuropsychiatry Evaluation / ADHD/ h/o ocd/ purging behavior. Speech and Hearing note 10/2023 reviewed with patient today. ENT evaluation reviewed with pt. MRI 10/2023 Reviewed with patient normal study. Labs reviewed with pt, continue taking b12 1000mcg otc and vit d otc, and Ferrous Sulfate 325mg po daily. F/U in 3 months Orders: Orders RT PSG in-lab sleep study Today G47.30 - Sleep apnea, unspecified, R41.89 - Other symptoms and signs involving cognitive functions and awareness Referrals Neuropsychiatry Referral R41.89 - Other symptoms and signs involving cognitive functions and awareness Medications: New mecobalamin (vitamin B12) place tablet under tongue and allow to dissolve for at least30 secs before swallowing 1,000 mcg sublingual BEDTIME 90 tabs 0RF cholecalciferol (vitamin D3) 250 mcg PO QWEEK 13 caps 0RF 3 months MDD 1 capsule E55.9 - Vitamin D deficiency, unspecified ferrous sulfate take one tablet daily with a glass of oj. 325 mg PO DAILY 90 tabs 0RF low iron 3 months MDD 325mg D64.9 - Anemia, unspecified Coding Level of Care Code Est Pt Level 4 (95666) Diagnoses Vitamin D deficiency E55.9 Other iron deficiency anemia D50.8 Anemia type: iron deficiency Iron deficiency anemia type: other iron deficiency Cognitive change R41.89 B12 deficiency E53.8 Morbid obesity E66.01 Binge eating disorder, unspecified severity F50.819 Eating disorder severity or remission status: unspecified severity Chronic fatigue R53.82 Fatigue type: chronic, unspecified Obstructive sleep apnea syndrome G47.33 Sleep apnea type: obstructive
[2025-06-22 07:55] VITALS: BP 128/88; PULSE 65; O2SAT 98
== END 2025-06-22 08:47 | disposition home or self-care (01) ==
LOC: HO.HSMS 07:51
PROVIDERS: PCP Nurse Practitioner Family; Visit Provider Physician Assistant Medical
DX: E55.9 Vitamin D deficiency, unspecified (principal); D50.8 Other iron deficiency anemias; R41.89 Other symptoms and signs involving cognitive functions and awareness; E53.8 Deficiency of other specified B group vitamins; E66.01 Morbid (severe) obesity due to excess calories; F50.819 Binge eating disorder, unspecified; R53.82 Chronic fatigue, unspecified; G47.33 Obstructive sleep apnea (adult) (pediatric)
CPT/HCPCS: 99214